=== PATIENT | male | born 1950 | race Hispanic/Latino ===

== ENCOUNTER 2019-09-14 16:24 | Inpatient (IN) | payer MEDICAID, OTHER ==
[~2019-09-14] VITALS: Ht 154.9 cm; Wt 73.3 kg
[2019-09-14 16:57] LABS: PARTIAL THROMBOPLASTIN TIME 29.9 SEC (26.3-35.5); PROTHROMBIN TIME 10.8 SEC (9.6-11.6)
[2019-09-14] MEDS ORDERED: ALBUTEROL INHALER 90MCG/INH IH ONE (17:03)
[2019-09-14 17:06] LABS: ALBUMIN 2.4 g/dL (3.5-5.0); CREATININE 1.3 mg/dL (0.5-1.5); POTASSIUM 3.8 mmol/L (3.5-5.1); TOTAL PROTEIN, SERUM 8.2 g/dL (6.0-8.3)
[2019-09-14 17:08] LABS: BASOPHILS % (AUTO) 0.2 % (0.0-5.0); CRP QUANTITATIVE 465.2 mg/L (0.00-9.0); HEMATOCRIT 40.3 % (42-54); LYMPHOCYTES % (AUTO) 3.4 % (21.0-51.0); MEAN CORPUSCULAR HGB CONC 34.7 g/dL (32.0-36.0); MEAN CORPUSCULAR VOLUME 92.2 fL (79-99); MONOCYTES % (AUTO) 3.6 % (3.0-13.0); NEUTROPHILS % (AUTO) 91.4 % (40.0-77.0); PLATELET COUNT (AUTO) 388 K/uL (130-400); RED BLOOD CELL COUNT(AUTO) 4.37 MIL/uL (4.50-6.20); RED CELL DISTRIBUTION WIDTH 12.6 % (11.0-15.5); WHITE BLOOD COUNT (AUTO) 15.1 K/uL (4.8-10.8)
[2019-09-14] MEDS ORDERED: INSULIN HUMULIN R 100 UNIT/ML 3ML ONE ×2 (17:35→18:34)
[2019-09-14 17:38] LABS: B-TYPE NATRIURETIC PEPTIDE 113 pg/mL (0-100)
[2019-09-14 17:52] LABS: FERRITIN 2091 ng/mL (30-400)
[2019-09-14] MEDS ORDERED: AZITHROMYCIN 500MG+NS 250ML 250 ML IV ONE (17:55)
[2019-09-14 17:59] LABS: ABG BASE EXCESS -9.3 mmol/L (-2.0-3.0); ABG OXYGEN SATURATION 84.1 % (95.0-99.0); ABG PCO2 22 mmHg (35-48)
[2019-09-14] MEDS ORDERED: DEXTROSE 5 %-0.45 % NACL 1,000 ML IV PRN (18:21)
[2019-09-14] MEDS ORDERED: SODIUM CHLORIDE 0.9% 1000ML 1,000 ML IV SCH (18:21)
[2019-09-14] MEDS ORDERED: ACETAMINOPHEN 325 MG TAB PO PRN ×2 (18:30)
[2019-09-14] MEDS ORDERED: ERGOCALCIFEROL (VITAMIN D2) 50,000 UNIT CAPSULE PO ONE (18:30)
[2019-09-14] MEDS ORDERED: HYDRALAZINE HCL 20 MG/ML VIAL IV PRN (18:30)
[2019-09-14] MEDS ORDERED: INSULIN REGULAR, HUMAN 3ML 100 UNIT in SODIUM CHLORIDE 0.9% 99 ML IV PRN ×2 (18:30)
[2019-09-14] MEDS ORDERED: POTASSIUM CHLORIDE 10MEQ/100ML 100 ML IV PRN (18:30)
[2019-09-14] MEDS ORDERED: ONDANSETRON HCL 4 MG/2 ML VIAL IV PRN (18:30)
[2019-09-14] MEDS ORDERED: SODIUM CHLORIDE 0.9% 100 ML IV ONE ×2 (18:35→21:51)
[2019-09-14] MEDS ORDERED: ALBUTEROL INHALER 90MCG/INH IH PRN (18:45)
[2019-09-14] MEDS ORDERED: DOXYCYCLINE HYCLATE 100 MG TABLET PO ONE (21:41)
[2019-09-14] MEDS ORDERED: METHYLPREDNISOLONE SOD SUCC 40MG/ML 1ML ONE (21:41)
[2019-09-14] MEDS ORDERED: CEFTRIAXONE SODIUM 1 GM ONE (21:41)
[2019-09-15] MEDS ORDERED: IOHEXOL-350 75 ML VIAL IV ONE (00:48)
[2019-09-15] MEDS ORDERED: ERGOCALCIFEROL (VITAMIN D2) 50,000 UNIT CAPSULE ONE (02:42)
[2019-09-15] MEDS ORDERED: DEXTROSE 5 %-0.45 % NACL 1,000 ML IV ONE (02:54)
[2019-09-15 04:05] LABS: BILIRUBIN,URINE Negative (NEGATIVE); COLOR,URINE Yellow (YELLOW); GLUCOSE, URINE (UA) >=1000 mg/dL (NEGATIVE); KETONES,URINE 40 mg/dL (NEGATIVE); LEUKOCYTE ESTERASE ,URINE Negative (NEGATIVE); NITRATE,URINE Negative (NEGATIVE); OCCULT BLOOD,URINE Negative (NEGATIVE); PH,URINE 5.5 (5.0-8.0); PROTEIN,URINE POS 1+ mg/dL (NEGATIVE)
[2019-09-15 04:23] LABS: APPEARANCE,URINE CLEAR (CLEAR); BACTERIA,URINE None Seen /HPF (None Seen); RBC,URINE None Seen /HPF (0-1); WBC,URINE None Seen /HPF (0-1)
[2019-09-15 04:35] LABS: ABG BASE EXCESS -5.4 mmol/L (-2.0-3.0); ABG HCO3 18.2 mmol/L (21.0-28.0); ABG OXYGEN SATURATION 95.2 % (95.0-99.0); ABG PCO2 31 mmHg (35-48)
[2019-09-15 06:27] LABS: BASOPHILS % (AUTO) 0.2 % (0.0-5.0); HEMATOCRIT 35.3 % (42-54); LYMPHOCYTES % (AUTO) 3.8 % (21.0-51.0); MEAN CORPUSCULAR HEMOGLOBIN 35.1 pg (27.0-33.0); MEAN CORPUSCULAR VOLUME 92.4 fL (79-99); MONOCYTES % (AUTO) 4.2 % (3.0-13.0); NEUTROPHILS % (AUTO) 90.1 % (40.0-77.0); PLATELET COUNT (AUTO) 332 K/uL (130-400); RED BLOOD CELL COUNT(AUTO) 3.82 MIL/uL (4.50-6.20); RED CELL DISTRIBUTION WIDTH 12.7 % (11.0-15.5); WHITE BLOOD COUNT (AUTO) 15.6 K/uL (4.8-10.8)
[2019-09-15 06:48] LABS: CREATININE 0.7 mg/dL (0.5-1.5); POTASSIUM 3.1 mmol/L (3.5-5.1)
[2019-09-15 07:37] LABS: CRP QUANTITATIVE 282.8 mg/L (0.00-9.0)
[2019-09-15] MEDS ORDERED: ASCORBIC ACID 500 MG TAB ONE (08:12)
[2019-09-15] MEDS ORDERED: ENOXAPARIN SODIUM 40 MG/0.4 ML SYRINGE SQ ONE (08:12)
[2019-09-15] MEDS ORDERED: ALBUTEROL INHALER 90MCG/INH IH ONE (08:12)
[2019-09-15] MEDS ORDERED: DOXYCYCLINE HYCLATE 100 MG TABLET PO ONE (08:12)
[2019-09-15] MEDS ORDERED: ZINC SULFATE 220 CAPSULE ONE (08:12)
[2019-09-15] MEDS ORDERED: ENOXAPARIN SODIUM 40 MG/0.4 ML SYRINGE SQ SCH (09:00)
[2019-09-15] MEDS ORDERED: CEFTRIAXONE SODIUM 1 GM ONE (10:34)
[2019-09-15] MEDS ORDERED: METHYLPREDNISOLONE SOD SUCC 125MG/2ML VIAL ONE (10:35)
[2019-09-15] MEDS ORDERED: POTASSIUM CHLORIDE 20MEQ/100ML 100 ML IV ONE (12:54)
[2019-09-15 14:35] LABS: CREATININE 0.8 mg/dL (0.5-1.5); POTASSIUM 3.6 mmol/L (3.5-5.1)
[2019-09-15] MEDS ORDERED: POTASSIUM CHLORIDE 10MEQ/100ML 100 ML IV ONE (14:55)
[2019-09-15] MEDS ORDERED: METHYLPREDNISOLONE SOD SUCC 40MG/ML 1ML ONE (17:11)
--- NOTE | 2019-09-15 17:27 | NUR ---
REACHED PATIENTS DAUGHTER TERRELL BY PHONE FOR [place] CONFIRMED NUMBERS ON FACE SHEET, ASKED TERRELL TO ENSURE MONIS[facility], DAUGHTER OF PATIENT WHO LEFT NUMBER TO ANSWER PHONE IF HOSPITAL CALLS, VERBALIZED UNDERSTANDING, WILL PASS ON TO [facility]. PATIENT LIVES WITH SPOUSE VALERIE, IS ACTIVE, INDEPENDENT, DRIVES, AND HAS NO DME. SPOUSE CURRENTLY [place], AND PHONEliane IS A [place] PHONSE,NO ABLE TO GET IN TOUCH WITH HER. DCP IS HOME, MONISHA OR TERRELL TO PROVIDE TRANSPORT,PT IS UNINSURED AND HAS BEEN A RESIDENT FOR 5 + YEARS, [facility] TO SCREEN CM TO FOLLOW Addendum: 09/15/19 at 1730 by CATARINO SANCHEZ RN CM Amended: Links added.
[2019-09-15 18:11] LABS: CREATININE 0.8 mg/dL (0.5-1.5); POTASSIUM 3.6 mmol/L (3.5-5.1)
[2019-09-16] MEDS ORDERED: MIDODRINE HCL 5 MG TABLET ONE (02:08)
[2019-09-16] MEDS ORDERED: ACETAMINOPHEN 325 MG TAB ONE (02:35)
[2019-09-16] MEDS ORDERED: DEXTROSE 5 %-0.45 % NACL 1,000 ML IV ONE ×2 (05:07→12:12)
[2019-09-16 06:03] LABS: BASOPHILS % (AUTO) 0.2 % (0.0-5.0); HEMATOCRIT 35.5 % (42-54); LYMPHOCYTES % (AUTO) 4.7 % (21.0-51.0); MEAN CORPUSCULAR HEMOGLOBIN 36.5 pg (27.0-33.0); MEAN CORPUSCULAR HGB CONC 39.2 g/dL (32.0-36.0); MEAN CORPUSCULAR VOLUME 93.2 fL (79-99); NEUTROPHILS % (AUTO) 89.7 % (40.0-77.0); PLATELET COUNT (AUTO) 390 K/uL (130-400); RED BLOOD CELL COUNT(AUTO) 3.81 MIL/uL (4.50-6.20); RED CELL DISTRIBUTION WIDTH 12.8 % (11.0-15.5); WHITE BLOOD COUNT (AUTO) 15.4 K/uL (4.8-10.8)
[2019-09-16 07:05] LABS: CREATININE 0.7 mg/dL (0.5-1.5); CRP QUANTITATIVE 169.3 mg/L (0.00-9.0); POTASSIUM 3.4 mmol/L (3.5-5.1)
[2019-09-16] MEDS ORDERED: ASCORBIC ACID 500 MG TAB ONE (07:59)
[2019-09-16] MEDS ORDERED: ZINC SULFATE 220 CAPSULE ONE (08:00)
[2019-09-16] MEDS ORDERED: FAMOTIDINE/PF 20 MG/2 ML VIAL IV ONE ×2 (08:00→20:15)
[2019-09-16] MEDS ORDERED: METHYLPREDNISOLONE SOD SUCC 40MG/ML 1ML ONE ×2 (09:11→17:09)
[2019-09-16] MEDS ORDERED: PHARMACY COMMUNICATION MISC SCH (09:45)
[2019-09-16] MEDS ORDERED: CEFTRIAXONE SODIUM 1 GM ONE (13:19)
[2019-09-16] MEDS ORDERED: DOXYCYCLINE HYCLATE 100 MG TABLET PO ONE (13:19)
[2019-09-16] MEDS ORDERED: INSULIN GLARGINE 100 UNITS/ML 10 ML VIAL SQ ONE (14:45)
[2019-09-16] MEDS ORDERED: INSULIN LISPRO 100 UNIT/ML 3ML SQ SCH (17:00)
[2019-09-16 17:46] LABS: CREATININE 0.8 mg/dL (0.5-1.5); POTASSIUM 3.4 mmol/L (3.5-5.1)
[2019-09-16 17:51] LABS: BILIRUBIN,TOTAL 0.5 mg/dL (0.2-1.0); TOTAL PROTEIN, SERUM 6.7 g/dL (6.0-8.3)
[2019-09-16] MEDS ORDERED: ENOXAPARIN SODIUM 40 MG/0.4 ML SYRINGE SQ ONE (20:14)
[2019-09-16] MEDS ORDERED: INSULIN HUMULIN R 100 UNIT/ML 3ML ONE (20:18)
[2019-09-16] MEDS ORDERED: ENOXAPARIN SODIUM 30 MG/0.3 ML SQ SCH (21:00)
[2019-09-17] MEDS ORDERED: CEFTRIAXONE SODIUM 1 GM ONE ×2 (01:19→13:59)
[2019-09-17] MEDS ORDERED: METHYLPREDNISOLONE SOD SUCC 125MG/2ML VIAL ONE (01:19)
[2019-09-17] MEDS ORDERED: DOXYCYCLINE HYCLATE 100 MG TABLET PO ONE ×3 (01:19→21:17)
[2019-09-17 04:29] LABS: BASOPHILS % (AUTO) 0.1 % (0.0-5.0); LYMPHOCYTES % (AUTO) 4.3 % (21.0-51.0); MEAN CORPUSCULAR HEMOGLOBIN 35.6 pg (27.0-33.0); MEAN CORPUSCULAR HGB CONC 38.1 g/dL (32.0-36.0); MEAN CORPUSCULAR VOLUME 93.5 fL (79-99); MONOCYTES % (AUTO) 2.8 % (3.0-13.0); NEUTROPHILS % (AUTO) 91.7 % (40.0-77.0); PLATELET COUNT (AUTO) 354 K/uL (130-400); RED BLOOD CELL COUNT(AUTO) 3.85 MIL/uL (4.50-6.20); RED CELL DISTRIBUTION WIDTH 12.7 % (11.0-15.5); WHITE BLOOD COUNT (AUTO) 14.8 K/uL (4.8-10.8)
[2019-09-17 04:41] LABS: HEMOGLOBIN A1C 10.6 % (4.0-6.0)
[2019-09-17 04:46] LABS: CREATININE 0.6 mg/dL (0.5-1.5); CRP QUANTITATIVE 82.9 mg/L (0.00-9.0); POTASSIUM 3.7 mmol/L (3.5-5.1)
[2019-09-17] MEDS ORDERED: ASCORBIC ACID 500 MG TAB ONE (09:12)
[2019-09-17] MEDS ORDERED: METHYLPREDNISOLONE SOD SUCC 40MG/ML 1ML ONE ×3 (09:12→21:17)
[2019-09-17] MEDS ORDERED: ENOXAPARIN SODIUM 30 MG/0.3 ML SQ ONE ×2 (09:13→21:17)
[2019-09-17] MEDS ORDERED: ZINC SULFATE 220 CAPSULE ONE (09:13)
[2019-09-17] MEDS ORDERED: FAMOTIDINE/PF 20 MG/2 ML VIAL IV ONE (09:16)
[2019-09-17] MEDS ORDERED: INSULIN HUMULIN R 100 UNIT/ML 3ML ONE (14:02)
[2019-09-17] MEDS ORDERED: INSULIN GLARGINE 100 UNITS/ML 10 ML VIAL SQ SCH (21:00)
[2019-09-17] MEDS ORDERED: ENOXAPARIN SODIUM 1 MG/KG SQ SCH (23:30)
[2019-09-18] MEDS ORDERED: METHYLPREDNISOLONE SOD SUCC 40MG/ML 1ML ONE (04:48)
[2019-09-18] MEDS ORDERED: CEFTRIAXONE SODIUM 1 GM ONE (04:48)
[2019-09-18] MEDS ORDERED: SODIUM CHLORIDE 0.9% 1000ML 1,000 ML IV ONE (04:55)
[2019-09-18] MEDS: CEFTRIAXONE SODIUM 1 GM IVP SCH ×2 (06:30→19:31)
[2019-09-18] MEDS: INSULIN HUMULIN R 100 UNIT/ML 3ML SQ SCH ×4 (07:30→21:00)
[2019-09-18] MEDS ORDERED: INSULIN LISPRO 100 UNIT/ML 3ML SQ SCH (08:00)
[2019-09-18] MEDS: FAMOTIDINE 20MG TAB 20 MG TAB PO SCH (09:00)
[2019-09-18] MEDS: ASCORBIC ACID 500 MG TAB PO SCH (09:00)
[2019-09-18] MEDS: DOXYCYCLINE HYCLATE 100 MG TABLET PO SCH ×2 (09:00→21:14)
[2019-09-18] MEDS: ZINC SULFATE 220 CAPSULE PO SCH (09:00)
[2019-09-18] MEDS ORDERED: ASCORBIC ACID 500 MG TAB ONE (09:12)
[2019-09-18] MEDS ORDERED: ZINC SULFATE 220 CAPSULE ONE (09:12)
[2019-09-18] MEDS ORDERED: FAMOTIDINE/PF 20 MG/2 ML VIAL IV ONE (09:13)
[2019-09-18] MEDS ORDERED: ENOXAPARIN SODIUM 30 MG/0.3 ML SQ ONE (09:13)
[2019-09-18] MEDS ORDERED: METHYLPREDNISOLONE SOD SUCC 125MG/2ML VIAL ONE (09:13)
[2019-09-18 11:35] VITALS: BP 158/72
[2019-09-18] MEDS: SODIUM CHLORIDE 0.9% 1000ML 1,000 ML IV SCH ×3 (11:58→22:53)
[2019-09-18] MEDS: METHYLPREDNISOLONE SOD SUCC 40MG/ML 1ML IVP SCH ×2 (11:58→21:14)
[2019-09-18 16:00] VITALS: BP 151/65
[2019-09-18] MEDS: INSULIN LISPRO 100 UNIT/ML 3ML SQ SCH (16:54)
[2019-09-18 20:00] VITALS: BP 139/62
--- NOTE | 2019-09-18 20:24 | NUR ---
PM ASSESSMENT ASSESSMENT COMPLETED A &OX3, NRB @15 L LUNGS DIMINISHED. BED ALARM FRUIT COORDINATOR MENDEZ IN REACH. DENIES NEEDS/CONCERNS ABLE TO MAKE NEEDS KNOWN.
[2019-09-18] MEDS ORDERED: INSULIN GLARGINE 100 UNITS/ML 10 ML VIAL SQ SCH ×2 (21:00)
[2019-09-18] MEDS: ENOXAPARIN SODIUM 80 MG/0.8 ML SQ SCH (21:04)
[2019-09-19] VITALS: BP 151/65
[2019-09-19] MEDS: SODIUM CHLORIDE 0.9% 1000ML 1,000 ML IV SCH ×2 (03:30→09:14)
[2019-09-19 04:00] VITALS: BP 125/67
[2019-09-19] MEDS: INSULIN HUMULIN R 100 UNIT/ML 3ML SQ SCH ×4 (06:51→21:01)
[2019-09-19] MEDS: CEFTRIAXONE SODIUM 1 GM IVP SCH ×2 (06:52→21:26)
[2019-09-19 08:00] VITALS: BP 136/68
[2019-09-19] MEDS: FAMOTIDINE 20MG TAB 20 MG TAB PO SCH (09:00)
[2019-09-19] MEDS: ZINC SULFATE 220 CAPSULE PO SCH (09:13)
[2019-09-19] MEDS: METHYLPREDNISOLONE SOD SUCC 40MG/ML 1ML IVP SCH ×3 (09:14→21:26)
[2019-09-19] MEDS: DOXYCYCLINE HYCLATE 100 MG TABLET PO SCH ×2 (09:14→21:26)
[2019-09-19] MEDS: ASCORBIC ACID 500 MG TAB PO SCH (09:14)
[2019-09-19] MEDS: ENOXAPARIN SODIUM 80 MG/0.8 ML SQ SCH ×2 (09:14→21:27)
[2019-09-19] MEDS: INSULIN LISPRO 100 UNIT/ML 3ML SQ SCH ×3 (09:16→17:08)
[2019-09-19 11:45] VITALS: BP 137/64
[2019-09-19 13:55] LABS: CRP QUANTITATIVE 58.3 mg/L (0.00-9.0)
[2019-09-19 16:00] VITALS: BP 150/68
--- NOTE | 2019-09-19 16:00 | NUR ---
PLASMA CONSENT PATIENT PROVIDED WITH INFORMATION REGARDING CONVALESCENT PLASMA. PATIENT WISHES TO READ THE TEACHING MATERIAL PROVIDED AND TALK TO HIS DAUGHTER ABOUT CONVALESCENT PLASMA. HE IS ALREADY REGISTERED. REGISTRATION FAXED TO LAB.
[2019-09-19] MEDS ORDERED: REMDESIVIR (INVESTIGATIONAL) 100 MG in SODIUM CHLORIDE 0.9% 250 ML IV SCH (17:30)
[2019-09-19 19:58] VITALS: BP 144/73
[2019-09-19] MEDS ORDERED: INSULIN GLARGINE 100 UNITS/ML 10 ML VIAL SQ SCH (21:00)
[2019-09-19] MEDS: PHARMACY COMMUNICATION** REMDESIVIR ORDER MISC SCH (22:20)
[2019-09-20] VITALS (7 sets, daily range): BP systolic 128–151; BP diastolic 58–70
[2019-09-20 04:56] LABS: HEMATOCRIT 33.4 % (42-54); MEAN CORPUSCULAR HEMOGLOBIN 37.5 pg (27.0-33.0); MEAN CORPUSCULAR HGB CONC 40.4 g/dL (32.0-36.0); MEAN CORPUSCULAR VOLUME 92.8 fL (79-99); PLATELET COUNT (AUTO) 254 K/uL (130-400); RED CELL DISTRIBUTION WIDTH 11.9 % (11.0-15.5); WHITE BLOOD COUNT (AUTO) 13.3 K/uL (4.8-10.8)
[2019-09-20 05:15] LABS: ALBUMIN 2.1 g/dL (3.5-5.0); CREATININE 0.7 mg/dL (0.5-1.5); CRP QUANTITATIVE 65.2 mg/L (0.00-9.0); POTASSIUM 3.1 mmol/L (3.5-5.1); TOTAL PROTEIN, SERUM 6.3 g/dL (6.0-8.3)
[2019-09-20 05:22] LABS: BAND NEUTROPHILS % (MANUAL) 7 % (0-2); EOSINOPHILS % (MANUAL) 1 % (1-6); LYMPHOCYTES % (MANUAL) 7 % (22-44); SEGMENTED NEUTROPHILS % 85 % (40-70)
[2019-09-20 05:23] LABS: MAN.DIFF COMMENT-IMPRESSION MANUAL DIFFERENTIAL; PLATELET MORPHOLOGY COMMENT ADEQUATE
[2019-09-20] MEDS: PHARMACY COMMUNICATION** REMDESIVIR ORDER MISC SCH ×3 (05:48→23:00)
[2019-09-20] MEDS: CEFTRIAXONE SODIUM 1 GM IVP SCH ×2 (05:48→18:07)
--- NOTE | 2019-09-20 06:19 | NUR ---
PM SHIFT NOTE PT A & 0X3 ON NRB @15 L ENCOURAGED TO PRONE DURING THE NIGHT BUT HAS DECLINED TO DO SO. NOTED K+ = 3.1 ATTEMPTED TO REPLACE HOWEVER 10 MEQ POTASSIUM NOT STOCKED IN ANY [facility] NOTIFIED AND WILL MAKE AVAILABLE. NO CHANGES TO BASELINE SHIFT ASSESSMENT/ACUTE EVENTS OVERNIGHT.
[2019-09-20] MEDS: INSULIN HUMULIN R 100 UNIT/ML 3ML SQ SCH ×4 (06:33→20:49)
[2019-09-20] MEDS ORDERED: SODIUM CHLORIDE 0.9% 1000ML 1,000 ML IV ONE (06:55)
[2019-09-20] MEDS: DOXYCYCLINE HYCLATE 100 MG TABLET PO SCH ×2 (08:11→20:50)
[2019-09-20] MEDS: ASCORBIC ACID 500 MG TAB PO SCH (08:11)
[2019-09-20] MEDS: METHYLPREDNISOLONE SOD SUCC 40MG/ML 1ML IVP SCH ×3 (08:11→20:50)
[2019-09-20] MEDS: ZINC SULFATE 220 CAPSULE PO SCH (08:11)
[2019-09-20] MEDS: FAMOTIDINE 20MG TAB 20 MG TAB PO SCH (08:12)
[2019-09-20] MEDS: ENOXAPARIN SODIUM 80 MG/0.8 ML SQ SCH ×2 (08:12→20:50)
[2019-09-20] MEDS: INSULIN LISPRO 100 UNIT/ML 3ML SQ SCH ×3 (08:28→17:09)
--- NOTE | 2019-09-20 14:11 | NUR ---
PHONE CALL Family updated.
--- NOTE | 2019-09-20 18:02 | NUR ---
SPOKE WITH PT. RE:CONVALESCENT PLASMA ORDERED BY MD FOR TRANSFUSION. PT. STATES STILL HASN'T DECIDED ON ACCEPTING TRANSFUSION AND WILL SPEAK WITH HIS DAUGHTER ABOUT IT. INFORMED PT. TO NOTIFY NURSING STAFF ON DECISION WHETHER IT BE TO ACCEPT OR DENY, VERBALIZED UNDERSTANDING.
[2019-09-20] MEDS ORDERED: POTASSIUM CHLORIDE 10% ELIXIR 20 MEQ/15 ML UDCUP PO PRN (18:15)
[2019-09-20] MEDS ORDERED: LIDOCAINE HCL-MPF 1% 2ML VIAL IV PRN (18:15)
[2019-09-20] MEDS ORDERED: INSULIN GLARGINE 100 UNITS/ML 10 ML VIAL SQ SCH (21:00)
[2019-09-21 04:14] VITALS: BP 132/67
[2019-09-21 05:19] LABS: BASOPHILS % (AUTO) 0.1 % (0.0-5.0); HEMATOCRIT 33.4 % (42-54); LYMPHOCYTES % (AUTO) 3.5 % (21.0-51.0); MEAN CORPUSCULAR HEMOGLOBIN 34.5 pg (27.0-33.0); MEAN CORPUSCULAR HGB CONC 37.4 g/dL (32.0-36.0); MEAN CORPUSCULAR VOLUME 92.3 fL (79-99); MONOCYTES % (AUTO) 2.4 % (3.0-13.0); NEUTROPHILS % (AUTO) 93.1 % (40.0-77.0); PLATELET COUNT (AUTO) 199 K/uL (130-400); RED BLOOD CELL COUNT(AUTO) 3.62 MIL/uL (4.50-6.20); WHITE BLOOD COUNT (AUTO) 13.8 K/uL (4.8-10.8)
[2019-09-21] MEDS: PHARMACY COMMUNICATION** REMDESIVIR ORDER MISC SCH ×3 (05:46→22:24)
[2019-09-21] MEDS: INSULIN HUMULIN R 100 UNIT/ML 3ML SQ SCH ×4 (05:56→20:26)
[2019-09-21 05:57] LABS: ALBUMIN 1.9 g/dL (3.5-5.0); CREATININE 0.6 mg/dL (0.5-1.5); CRP QUANTITATIVE 48.4 mg/L (0.00-9.0); POTASSIUM 3.3 mmol/L (3.5-5.1); TOTAL PROTEIN, SERUM 5.8 g/dL (6.0-8.3)
[2019-09-21] MEDS: CEFTRIAXONE SODIUM 1 GM IVP SCH (05:57)
[2019-09-21 08:00] VITALS: BP 128/71
[2019-09-21] MEDS: INSULIN LISPRO 100 UNIT/ML 3ML SQ SCH ×3 (09:17→16:31)
[2019-09-21] MEDS: DOXYCYCLINE HYCLATE 100 MG TABLET PO SCH ×2 (09:29→20:20)
[2019-09-21] MEDS: METHYLPREDNISOLONE SOD SUCC 40MG/ML 1ML IVP SCH ×3 (09:29→20:20)
[2019-09-21] MEDS: ASCORBIC ACID 500 MG TAB PO SCH (09:30)
[2019-09-21] MEDS: ZINC SULFATE 220 CAPSULE PO SCH (09:30)
[2019-09-21] MEDS: POTASSIUM CHLORIDE 20 MEQ ERTAB PO PRN ×3 (09:30→16:33)
[2019-09-21] MEDS: ENOXAPARIN SODIUM 80 MG/0.8 ML SQ SCH (09:31)
--- NOTE | 2019-09-21 09:46 | NUR ---
[facility] CALLED IN REGARDS TO THE PATIENT RECEIVING PLASMA; I WENT AND SPOKE TO HIM ABOUT IT AND HE STATED THAT HE IS NOT GOING TO TAKE THE PLASMA, I ASKED IF THERES ANY QUESTIONS OR CONCERNS ABOUT IT I COULD HELP ANSWER FOR HIM AND HE STATED HE DID NOT TRUST TAKING IT STATING "IT WAS TO SOON TO BE TAKING IT NOT BEING TESTED ENOUGH"; I HAVE CALLED [facility] BANK AND INFORMED THEM PT NOT ACCEPTING.
[2019-09-21] MEDS: FAMOTIDINE/PF 20 MG/2 ML VIAL IV SCH ×2 (12:20→20:20)
[2019-09-21 12:22] VITALS: BP 134/59
--- NOTE | 2019-09-21 12:45 | NUR ---
PHONE CALL Patient's daughter Aster Montoya was updated and given opportunity to ask questions.
[2019-09-21 16:40] VITALS: BP 144/68
--- NOTE | 2019-09-21 16:45 | NUR ---
RDSCREEN - LOS X 7 Pt positive for COVID-19. DKA. Pt tolerating 60gm CCD with no report of GI distress, PO intake @100%. Pt LBM 09/18/19. WBC 13.8, BG 120, LDH 336, Alb 1.9. Pronating encouraged per EMR. Vitamin C, Zinc in place. Severe PCM. Recommend 500mg Vitamin BID Recommend 60mL ProMod BID RD to continue to monitor. Please notify as additional nutrition concerns arise. Thank you.
--- NOTE | 2019-09-21 18:15 | NUR ---
shift summary; pt's potassium level was 3.3 this am, i gave her 3 20meq tab's of kcl per protocol; he laid prone several times today with assistance arranging his oxygen tube, he was able to sit on edge of bed for all meals and ate approx. 50% of each meal; dr Tinajero adjusted down the amount of lovenox pt was receiving due to his dropping platelet numbers; dr Lovell rounded and was informed of current blood sugar levels and how much pt is eating; dr huerta did a video assisted rounding of the patient and updated him on how the pt was doing today--aaox3, requiring 15 L of oxygen via non rebreather mask with 02 sats in the 90%, unable to tolerate any kind of exertion, requires assistance to role over in bed. voiding dark yellow urine via urinal, no bm in several days but pt refuses to take laxatives stating it is his normal and he has been eating very little;
[2019-09-21 19:30] VITALS: BP 125/59
--- NOTE | 2019-09-21 20:20 | NUR ---
MEDS SHIFT ASSESSMENT DONE, PLEASE REFER TO CHART. DUE MEDS ADMINISTERED, TOLERATED WELL. INSTRUCTED TO LIE PRONE MUCH POSSIBLE. KEPT COMFORTABLE. CALL LIGHT WITHIN REACH. WILL MONITOR PT. Addendum: 09/21/19 at 2145 by YUDI RAMON RN RN Amended: Links added.
[2019-09-21] MEDS: ENOXAPARIN SODIUM 30 MG/0.3 ML SQ SCH (20:21)
[2019-09-21] MEDS: INSULIN GLARGINE 100 UNITS/ML 10 ML VIAL SQ SCH (20:26)
--- NOTE | 2019-09-21 22:00 | NUR ---
ROUNDS PT RESTING WELL, FAIRLY ASLEEP. NO DISTRESS NOTED. KEPT COMFORTABLE IN BED. CALL LIGHT WITHIN REACH. WILL MONITOR PT.
[2019-09-22] VITALS: BP 123/53
--- NOTE | 2019-09-22 01:45 | NUR ---
CHANGE PT AWAKENED AND TELE BATTERY CHANGED. NO CONCERNS VERBALIZED. NO DISTRESS NOTED. ENCOURAGED TO GO BACK TO SLEEP. WILL CONTINUE TO MONITOR PT.
--- NOTE | 2019-09-22 03:00 | NUR ---
O2 RT ASKED BY CASUAL SHOE INSPECTOR IF PT IS READY TO BE WEANED OFF O2 BUT PT IS STILL SOB WITH EXERTION ON THE NON-REBREATHER AND O2 SATS=90-95%. PT IS NOT READY AND STATED WILL RE-EVALUATE BY AM SHIFT TODAY.
[2019-09-22 04:00] VITALS: BP 127/59
--- NOTE | 2019-09-22 06:00 | NUR ---
ROUNDS PT RESTING WELL. NO COMPLAINTS VERBALIZED. KEPT COMFORTABLE. FOR MORE CARE.
[2019-09-22] MEDS: PHARMACY COMMUNICATION** REMDESIVIR ORDER MISC SCH ×2 (06:01→15:00)
[2019-09-22 06:18] LABS: BASOPHILS % (AUTO) 0.1 % (0.0-5.0); EOSINOPHILS % (AUTO) 0.1 % (0.0-8.0); HEMATOCRIT 33.9 % (42-54); LYMPHOCYTES % (AUTO) 5.6 % (21.0-51.0); MEAN CORPUSCULAR HEMOGLOBIN 34.4 pg (27.0-33.0); MEAN CORPUSCULAR HGB CONC 37.2 g/dL (32.0-36.0); MEAN CORPUSCULAR VOLUME 92.6 fL (79-99); MONOCYTES % (AUTO) 3.6 % (3.0-13.0); NEUTROPHILS % (AUTO) 89.7 % (40.0-77.0); PLATELET COUNT (AUTO) 312 K/uL (130-400); RED BLOOD CELL COUNT(AUTO) 3.66 MIL/uL (4.50-6.20); RED CELL DISTRIBUTION WIDTH 12.1 % (11.0-15.5)
[2019-09-22] MEDS: INSULIN HUMULIN R 100 UNIT/ML 3ML SQ SCH ×4 (06:23→22:36)
[2019-09-22 06:33] LABS: ALBUMIN 1.9 g/dL (3.5-5.0); BILIRUBIN,TOTAL 1.1 mg/dL (0.2-1.0); CREATININE 0.6 mg/dL (0.5-1.5); CRP QUANTITATIVE 49.7 mg/L (0.00-9.0); POTASSIUM 4.1 mmol/L (3.5-5.1); TOTAL PROTEIN, SERUM 5.9 g/dL (6.0-8.3)
[2019-09-22] MEDS: INSULIN LISPRO 100 UNIT/ML 3ML SQ SCH ×3 (07:31→17:17)
[2019-09-22 08:18] VITALS: BP 123/61
[2019-09-22] MEDS: DOXYCYCLINE HYCLATE 100 MG TABLET PO SCH ×2 (09:12→21:09)
[2019-09-22] MEDS: FAMOTIDINE/PF 20 MG/2 ML VIAL IV SCH ×2 (09:12→21:09)
[2019-09-22] MEDS: ZINC SULFATE 220 CAPSULE PO SCH (09:12)
[2019-09-22] MEDS: METHYLPREDNISOLONE SOD SUCC 40MG/ML 1ML IVP SCH ×3 (09:12→21:09)
[2019-09-22] MEDS: ASCORBIC ACID 500 MG TAB PO SCH (09:12)
[2019-09-22] MEDS: ENOXAPARIN SODIUM 30 MG/0.3 ML SQ SCH ×2 (09:13→21:10)
--- NOTE | 2019-09-22 10:12 | NUR ---
PT'S O2 SAT 85% THIS MORNING ON NON REBREATHER FACE MASK; I HAVE HAD HIM LAY PRONE FOR THE LAST HOUR AND RECHECKED SAT NOW AND STILL 85%; I HAVE PAGED RESP. THERAPY TO HAVE THEM COME AND EVALUATE HIM AND ADJUST OXYGEN; PT IS IN NO DISTRESS, WILL CONT TO MONITOR.
--- NOTE | 2019-09-22 10:23 | NUR ---
RESPIRATORY THERAPY HERE TO SEE PATIENT; ADDED O2 6L VIA NC ALONG WITH THE CURRENT NRB MASK AT 15L---NOW SAT. 96%
[2019-09-22] MEDS: LACTULOSE 20 GM/30 ML UDCUP PO PRN ×2 (11:50→11:59)
--- NOTE | 2019-09-22 12:21 | NUR ---
PHONE CALL Patient's daughter, Aster Montoya updated and given opportunity to ask questions.
[2019-09-22 12:25] VITALS: BP 151/65
[2019-09-22] MEDS ORDERED: REMDESIVIR (EUA) 520 100 MG VIAL IV ONE (16:00)
[2019-09-22] MEDS ORDERED: REMDESIVIR (EUA) 520 200 MG in SODIUM CHLORIDE 0.9% 250 ML IV SCH (16:00)
[2019-09-22] MEDS ORDERED: SODIUM CHLORIDE 0.9% 500ML 500 ML IV ONE (16:27)
[2019-09-22 16:35] VITALS: BP 129/54
--- NOTE | 2019-09-22 17:54 | NUR ---
SHIFT ASSESSMENT: PT REQUIRED AN INCREASE IN OXYGEN, DUE TO PERSISTANT SAT'S AT 85%; HE IS NOW AT 15L NON REBREATHER FACE MASK AND 6L NASAL CANULA, HE SATS IN THE MID 'S WITH THE NEW TREATMENT; PT HAS LAID PRONE WITH ASSISTANCE SEVERAL TIMES TODAY AND HAS SAT ON THE EDGE OF THE BED TO EAT ALL HIS MEALS--HE EATS ABOUT 50% OF ALL MEALS; HE VOIDS BOTH CONTINENT AND INCONTINENT IN BRIEF AT TIMES; I HAVE GIVEN HIM LACTULOSE TO ASSIST WITH BOWEL MOVEMENT, PT STATES HE HAS NOT HAD ONE IN SEVERAL DAYS; PT WAS STARTED ON REMDESIVIR THIS AFTERNOON, HE NOW MEETS PHARMACY'S REQUIREMENT'S TO RECEIVED;
[2019-09-22 20:08] VITALS: BP 124/61
[2019-09-22] MEDS: INSULIN GLARGINE 100 UNITS/ML 10 ML VIAL SQ SCH (22:35)
[2019-09-23] VITALS (7 sets, daily range): BP systolic 112–146; BP diastolic 55–70
[2019-09-23 05:48] LABS: HEMATOCRIT 33.7 % (42-54); MEAN CORPUSCULAR HEMOGLOBIN 35.3 pg (27.0-33.0); MEAN CORPUSCULAR HGB CONC 37.4 g/dL (32.0-36.0); MEAN CORPUSCULAR VOLUME 94.4 fL (79-99); PLATELET COUNT (AUTO) 345 K/uL (130-400); RED BLOOD CELL COUNT(AUTO) 3.57 MIL/uL (4.50-6.20); RED CELL DISTRIBUTION WIDTH 12.2 % (11.0-15.5); WHITE BLOOD COUNT (AUTO) 11.6 K/uL (4.8-10.8)
[2019-09-23 06:05] LABS: BAND NEUTROPHILS % (MANUAL) 1 % (0-2); LYMPHOCYTES % (MANUAL) 3 % (22-44); MAN.DIFF COMMENT-IMPRESSION MANUAL DIFFERENTIAL; MONOCYTES % (MANUAL) 4 % (2-9); SEGMENTED NEUTROPHILS % 92 % (40-70)
[2019-09-23 06:16] LABS: ALBUMIN 1.9 g/dL (3.5-5.0); BILIRUBIN,TOTAL 1.1 mg/dL (0.2-1.0); CREATININE 0.7 mg/dL (0.5-1.5); CRP QUANTITATIVE 44.3 mg/L (0.00-9.0); POTASSIUM 3.8 mmol/L (3.5-5.1); TOTAL PROTEIN, SERUM 5.8 g/dL (6.0-8.3)
[2019-09-23] MEDS: INSULIN HUMULIN R 100 UNIT/ML 3ML SQ SCH ×4 (06:38→21:00)
[2019-09-23] MEDS: PHARMACY COMMUNICATION** REMDESIVIR ORDER MISC SCH ×3 (07:00→22:06)
[2019-09-23] MEDS: FAMOTIDINE/PF 20 MG/2 ML VIAL IV SCH ×2 (08:32→21:03)
[2019-09-23] MEDS: METHYLPREDNISOLONE SOD SUCC 40MG/ML 1ML IVP SCH ×3 (08:32→20:50)
[2019-09-23] MEDS: DOXYCYCLINE HYCLATE 100 MG TABLET PO SCH ×2 (08:33→20:50)
[2019-09-23] MEDS: ASCORBIC ACID 500 MG TAB PO SCH (08:33)
[2019-09-23] MEDS: ENOXAPARIN SODIUM 30 MG/0.3 ML SQ SCH ×2 (08:33→20:51)
[2019-09-23] MEDS: INSULIN LISPRO 100 UNIT/ML 3ML SQ SCH ×3 (08:34→16:59)
[2019-09-23] MEDS ORDERED: COMPOUND IV REFRIGERATED 1 EACH IVSOLN MISC PRN (11:45)
[2019-09-23] MEDS: ZINC SULFATE 220 CAPSULE PO SCH (11:55)
--- NOTE | 2019-09-23 12:02 | NUR ---
DR. RENEA GARCIA. UPDATED ON PT. STATUS AND QUESTIONS ANSWERED. ORDER RECEIVED.
[2019-09-23] MEDS ORDERED: SODIUM CHLORIDE 0.9% 50 ML IV ONE (15:14)
[2019-09-23] MEDS: REMDESIVIR (EUA) 520 100 MG in SODIUM CHLORIDE 0.9% 250 ML IV SCH (15:15)
--- NOTE | 2019-09-23 15:25 | NUR ---
PT. RESTING IN BED WITH HOB AT 30 DEGREES, RESP.'S EVEN AND UNLABORED. NRB AND NC AT 6L/MIN IN PLACE. O2 SAT. 97%. NC REMOVED AND KEPT PT. ON NRB. INSTRUCTED PT. TO CALL IF FEELS SOB OR FEELS LIKE HE NEEDS MORE OXYGEN, PT. VERBALIZED UNDERSTANDING. CALL LIGHT WITHIN REACH AND VERBALIZED UNDERSTANDING. CONTINUOUS PULSE OXIMETER AT BEDSIDE.
[2019-09-23] MEDS ORDERED: REMDESIVIR (EUA) 520 100 MG VIAL IV ONE (16:00)
[2019-09-23] MEDS: INSULIN GLARGINE 100 UNITS/ML 10 ML VIAL SQ SCH (21:44)
[2019-09-24 03:00] VITALS: BP 131/59
[2019-09-24 05:26] LABS: BASOPHILS % (AUTO) 0.2 % (0.0-5.0); HEMATOCRIT 32.8 % (42-54); MEAN CORPUSCULAR HEMOGLOBIN 37.8 pg (27.0-33.0); MEAN CORPUSCULAR HGB CONC 40.5 g/dL (32.0-36.0); MEAN CORPUSCULAR VOLUME 93.2 fL (79-99); MONOCYTES % (AUTO) 2.3 % (3.0-13.0); NEUTROPHILS % (AUTO) 93.7 % (40.0-77.0); PLATELET COUNT (AUTO) 360 K/uL (130-400); RED BLOOD CELL COUNT(AUTO) 3.52 MIL/uL (4.50-6.20); RED CELL DISTRIBUTION WIDTH 12.3 % (11.0-15.5); WHITE BLOOD COUNT (AUTO) 13.4 K/uL (4.8-10.8)
[2019-09-24] MEDS: INSULIN HUMULIN R 100 UNIT/ML 3ML SQ SCH ×3 (05:54→16:30)
[2019-09-24 05:57] LABS: BILIRUBIN,TOTAL 1.2 mg/dL (0.2-1.0); CREATININE 0.6 mg/dL (0.5-1.5); CRP QUANTITATIVE 35.1 mg/L (0.00-9.0); POTASSIUM 4.1 mmol/L (3.5-5.1); TOTAL PROTEIN, SERUM 6.2 g/dL (6.0-8.3)
[2019-09-24] MEDS: PHARMACY COMMUNICATION** REMDESIVIR ORDER MISC SCH ×3 (06:07→22:37)
[2019-09-24 08:00] VITALS: BP_SYST 102; BP_SYST 115; BP_DIAS 61; BP_DIAS 62
[2019-09-24] MEDS: METHYLPREDNISOLONE SOD SUCC 40MG/ML 1ML IVP SCH ×3 (09:07→20:33)
[2019-09-24] MEDS: FAMOTIDINE/PF 20 MG/2 ML VIAL IV SCH ×2 (09:07→20:33)
[2019-09-24] MEDS: ENOXAPARIN SODIUM 30 MG/0.3 ML SQ SCH ×2 (09:07→20:34)
[2019-09-24] MEDS: DOXYCYCLINE HYCLATE 100 MG TABLET PO SCH (09:07)
[2019-09-24] MEDS: ASCORBIC ACID 500 MG TAB PO SCH (09:07)
[2019-09-24] MEDS: INSULIN LISPRO 100 UNIT/ML 3ML SQ SCH ×4 (09:22→21:05)
[2019-09-24 12:00] VITALS: BP_SYST 119; BP_SYST 148; BP_DIAS 68; BP_DIAS 69
[2019-09-24] MEDS: ZINC SULFATE 220 CAPSULE PO SCH (12:54)
--- NOTE | 2019-09-24 15:04 | NUR ---
Nutrition Follow Up: Consultation received for severe PCM due to alb 2.0 and does not meet criteria. Pt currently on 60gm CCD. Per nurse, pt with good tolerance, Fair intake, and will followup on compliance with protein supplementation. Pt getting promod 60ml BID. elevated glucose level. [facility] 09/20 Recommend: continue 60gm CCD, will add no concentrated sweets to diet order. F/U with nurse on supplemental protein intake compliance. Stool softener to promote BM Outpatient nutrition consultation for uncontrolled T2DM A1C 10.6. Lab draw Vit D: if low, provide 1000 IU of Vit D. Addendum: 09/24/19 at [address] Amended: Links added.
[2019-09-24 16:00] VITALS: BP_SYST 115; BP_SYST 134; BP_DIAS 61; BP_DIAS 64
[2019-09-24] MEDS ORDERED: REMDESIVIR (EUA) 520 100 MG VIAL IV ONE (16:00)
[2019-09-24] MEDS: REMDESIVIR (EUA) 520 100 MG in SODIUM CHLORIDE 0.9% 250 ML IV SCH (17:28)
[2019-09-24 19:00] VITALS: BP 117/56
[2019-09-24] MEDS: INSULIN GLARGINE 100 UNITS/ML 10 ML VIAL SQ SCH (21:06)
[2019-09-24 23:00] VITALS: BP 113/50
[2019-09-25 03:00] VITALS: BP 154/75
[2019-09-25] MEDS: LACTULOSE 20 GM/30 ML UDCUP PO PRN (03:08)
[2019-09-25 05:52] LABS: BASOPHILS % (AUTO) 0.2 % (0.0-5.0); HEMATOCRIT 38.5 % (42-54); LYMPHOCYTES % (AUTO) 5.8 % (21.0-51.0); MEAN CORPUSCULAR HEMOGLOBIN 34.7 pg (27.0-33.0); MEAN CORPUSCULAR HGB CONC 37.4 g/dL (32.0-36.0); MEAN CORPUSCULAR VOLUME 92.8 fL (79-99); MONOCYTES % (AUTO) 2.8 % (3.0-13.0); NEUTROPHILS % (AUTO) 90.4 % (40.0-77.0); PLATELET COUNT (AUTO) 407 K/uL (130-400); RED BLOOD CELL COUNT(AUTO) 4.15 MIL/uL (4.50-6.20); RED CELL DISTRIBUTION WIDTH 12.4 % (11.0-15.5); WHITE BLOOD COUNT (AUTO) 12.4 K/uL (4.8-10.8)
[2019-09-25] MEDS: PHARMACY COMMUNICATION** REMDESIVIR ORDER MISC SCH ×3 (06:06→23:00)
[2019-09-25 06:20] LABS: B-TYPE NATRIURETIC PEPTIDE 7 pg/mL (0-100)
[2019-09-25 06:22] LABS: CREATININE 0.7 mg/dL (0.5-1.5); CRP QUANTITATIVE 29.2 mg/L (0.00-9.0)
[2019-09-25] MEDS: INSULIN LISPRO 100 UNIT/ML 3ML SQ SCH ×7 (06:33→21:20)
[2019-09-25 07:30] VITALS: BP 120/61
[2019-09-25] MEDS: FAMOTIDINE/PF 20 MG/2 ML VIAL IV SCH ×2 (08:20→20:20)
[2019-09-25] MEDS: ASCORBIC ACID 500 MG TAB PO SCH (08:20)
[2019-09-25] MEDS: METHYLPREDNISOLONE SOD SUCC 40MG/ML 1ML IVP SCH ×3 (08:20→20:20)
[2019-09-25] MEDS: ENOXAPARIN SODIUM 30 MG/0.3 ML SQ SCH ×2 (08:21→20:21)
[2019-09-25 11:30] VITALS: BP 118/61
[2019-09-25] MEDS: ZINC SULFATE 220 CAPSULE PO SCH (12:41)
[2019-09-25 15:30] VITALS: BP 128/62
[2019-09-25] MEDS ORDERED: REMDESIVIR (EUA) 520 100 MG VIAL IV ONE (16:00)
[2019-09-25] MEDS: REMDESIVIR (EUA) 520 100 MG in SODIUM CHLORIDE 0.9% 250 ML IV SCH (17:28)
--- NOTE | 2019-09-25 17:58 | NUR ---
i spoke to pt's daughter on the phone and updated her as to how pt's day has been going.
[2019-09-25 19:00] VITALS: BP 131/61
[2019-09-25] MEDS: INSULIN GLARGINE 100 UNITS/ML 10 ML VIAL SQ SCH (20:24)
[2019-09-25 23:00] VITALS: BP 124/58
[2019-09-26 03:00] VITALS: BP 126/60
[2019-09-26 06:29] LABS: BASOPHILS % (AUTO) 0.1 % (0.0-5.0); HEMATOCRIT 31.2 % (42-54); LYMPHOCYTES % (AUTO) 5.9 % (21.0-51.0); MEAN CORPUSCULAR HEMOGLOBIN 37.8 pg (27.0-33.0); MEAN CORPUSCULAR HGB CONC 40.7 g/dL (32.0-36.0); MEAN CORPUSCULAR VOLUME 92.9 fL (79-99); NEUTROPHILS % (AUTO) 89.2 % (40.0-77.0); PLATELET COUNT (AUTO) 338 K/uL (130-400); RED BLOOD CELL COUNT(AUTO) 3.36 MIL/uL (4.50-6.20); RED CELL DISTRIBUTION WIDTH 12.4 % (11.0-15.5); WHITE BLOOD COUNT (AUTO) 10.7 K/uL (4.8-10.8)
[2019-09-26] MEDS: INSULIN LISPRO 100 UNIT/ML 3ML SQ SCH ×6 (06:33→20:48)
[2019-09-26 07:01] LABS: CREATININE 0.7 mg/dL (0.5-1.5); CRP QUANTITATIVE 18.5 mg/L (0.00-9.0)
[2019-09-26 07:30] VITALS: BP 103/52
[2019-09-26 08:10] LABS: B-TYPE NATRIURETIC PEPTIDE 20 pg/mL (0-100)
[2019-09-26] MEDS: FAMOTIDINE/PF 20 MG/2 ML VIAL IV SCH ×2 (08:28→20:08)
[2019-09-26] MEDS: METHYLPREDNISOLONE SOD SUCC 40MG/ML 1ML IVP SCH ×2 (08:28→14:17)
[2019-09-26] MEDS: ENOXAPARIN SODIUM 30 MG/0.3 ML SQ SCH ×2 (08:29→20:08)
[2019-09-26] MEDS: ASCORBIC ACID 500 MG TAB PO SCH (08:29)
[2019-09-26 11:30] VITALS: BP 123/62
[2019-09-26] MEDS: ZINC SULFATE 220 CAPSULE PO SCH (12:10)
[2019-09-26] MEDS: GUAIFENESIN-DM 200/20 MG 10 ML PO PRN (14:17)
[2019-09-26 15:30] VITALS: BP 138/60
[2019-09-26] MEDS ORDERED: REMDESIVIR (EUA) 520 100 MG VIAL IV ONE (16:00)
[2019-09-26] MEDS: REMDESIVIR (EUA) 520 100 MG in SODIUM CHLORIDE 0.9% 250 ML IV SCH (16:13)
--- NOTE | 2019-09-26 17:55 | NUR ---
shift assessment; pt cont. with partial non rebreather at 70% o2 with sat's high 80'2 during activity and 96 % at rest; he is still not able to ambulate or get out of bed due to extreme sob while attempting; he does sit on edge of bed during meals and is eating 100% of meals, voiding per urinal dark yellow urine; in good spirits, frequently watching tv; iv access changed due to it being old; daughter called to check on him.
[2019-09-26 20:00] VITALS: BP 131/58
[2019-09-26] MEDS: INSULIN GLARGINE 100 UNITS/ML 10 ML VIAL SQ SCH (20:49)
[2019-09-27] VITALS (7 sets, daily range): BP systolic 127–137; BP diastolic 57–66
[2019-09-27 05:23] LABS: BASOPHILS % (AUTO) 0.1 % (0.0-5.0); EOSINOPHILS % (AUTO) 0.3 % (0.0-8.0); LYMPHOCYTES % (AUTO) 10.7 % (21.0-51.0); MEAN CORPUSCULAR HEMOGLOBIN 33.7 pg (27.0-33.0); MEAN CORPUSCULAR HGB CONC 35.8 g/dL (32.0-36.0); MONOCYTES % (AUTO) 5.6 % (3.0-13.0); NEUTROPHILS % (AUTO) 82.4 % (40.0-77.0); PLATELET COUNT (AUTO) 358 K/uL (130-400); RED BLOOD CELL COUNT(AUTO) 3.83 MIL/uL (4.50-6.20); RED CELL DISTRIBUTION WIDTH 12.6 % (11.0-15.5)
[2019-09-27 06:07] LABS: CREATININE 0.7 mg/dL (0.5-1.5); CRP QUANTITATIVE 12.3 mg/L (0.00-9.0); POTASSIUM 3.7 mmol/L (3.5-5.1)
[2019-09-27] MEDS: INSULIN LISPRO 100 UNIT/ML 3ML SQ SCH ×6 (06:38→21:00)
[2019-09-27] MEDS: FAMOTIDINE/PF 20 MG/2 ML VIAL IV SCH ×2 (08:34→22:00)
[2019-09-27] MEDS: DEXAMETHASONE 4 MG TAB PO SCH (08:34)
[2019-09-27] MEDS: ASCORBIC ACID 500 MG TAB PO SCH (08:34)
[2019-09-27] MEDS: ENOXAPARIN SODIUM 30 MG/0.3 ML SQ SCH ×2 (08:34→22:00)
[2019-09-27] MEDS: GUAIFENESIN-DM 200/20 MG 10 ML PO PRN (08:37)
[2019-09-27] MEDS: ZINC SULFATE 220 CAPSULE PO SCH (11:53)
--- NOTE | 2019-09-27 18:22 | NUR ---
shift summary; pt has needed to cont. with partial non rebreather; i attempted to lower the amount of oxygen he was receiving and after an hour his sat's went from 99% to 92% and he was c/o being uncomfortable with it and sob; i have encouraged him to prone lie more often; pt still is not able to walk but cont. to sit on edge of bed for meals and he is eating 100% of his meals. voiding qs per urinal, no bm today;
[2019-09-27] MEDS: INSULIN GLARGINE 100 UNITS/ML 10 ML VIAL SQ SCH (22:02)
[2019-09-28 03:28] VITALS: BP 115/57
[2019-09-28 05:54] LABS: BASOPHILS % (AUTO) 0.1 % (0.0-5.0); EOSINOPHILS % (AUTO) 1.3 % (0.0-8.0); HEMATOCRIT 37.4 % (42-54); LYMPHOCYTES % (AUTO) 10.3 % (21.0-51.0); MEAN CORPUSCULAR HEMOGLOBIN 33.3 pg (27.0-33.0); MEAN CORPUSCULAR HGB CONC 35.6 g/dL (32.0-36.0); MEAN CORPUSCULAR VOLUME 93.7 fL (79-99); MONOCYTES % (AUTO) 5.1 % (3.0-13.0); NEUTROPHILS % (AUTO) 81.8 % (40.0-77.0); PLATELET COUNT (AUTO) 328 K/uL (130-400); RED BLOOD CELL COUNT(AUTO) 3.99 MIL/uL (4.50-6.20); RED CELL DISTRIBUTION WIDTH 12.8 % (11.0-15.5); WHITE BLOOD COUNT (AUTO) 9.9 K/uL (4.8-10.8)
[2019-09-28 06:25] LABS: CARBON DIOXIDE 32 mmol/L (21-32); CHLORIDE 103 mmol/L (101-111); CREATININE 0.7 mg/dL (0.5-1.5); GLOMERULAR FILTR. RATE CALC 119 mL/min (>60); GLUCOSE,RANDOM 109 mg/dL (70-105); LACTATE DEHYDROGENASE 209 U/L (81-234); POTASSIUM 3.8 mmol/L (3.5-5.1); SODIUM SERUM 139 mmol/L (136-145); UREA NITROGEN, BLOOD 24 mg/dL (7-18)
[2019-09-28] MEDS: INSULIN LISPRO 100 UNIT/ML 3ML SQ SCH ×7 (07:30→22:49)
--- NOTE | 2019-09-28 07:45 | NUR ---
PT. ANXIOUS. SITTING UP IN BED. O2 SAT-82% PER CONT. PULSE OX. NRB MASK IN PLACE. ENCOURAGED AND ASSISTED TO LEFT SIDE-LYING POSITION. PT. INCREASED O2 SAT. TO 92%. CALL LIGHT WITHIN REACH, VERBALIZED ABILITY TO USE.
[2019-09-28 08:00] VITALS: BP 113/52
[2019-09-28] MEDS: ASCORBIC ACID 500 MG TAB PO SCH (08:43)
[2019-09-28] MEDS: FAMOTIDINE/PF 20 MG/2 ML VIAL IV SCH ×2 (08:44→22:02)
[2019-09-28] MEDS: DEXAMETHASONE 4 MG TAB PO SCH (08:44)
[2019-09-28] MEDS: ENOXAPARIN SODIUM 30 MG/0.3 ML SQ SCH ×2 (08:45→22:03)
[2019-09-28 11:30] VITALS: BP 120/53
[2019-09-28] MEDS: ZINC SULFATE 220 CAPSULE PO SCH (12:12)
--- NOTE | 2019-09-28 15:21 | NUR ---
RESTING IN BED IN LEFT SIDE-LYING POSITION WITH HOB AT 15 DEGREES, RESP.'S EVEN AND UNLABORED. PARTIAL NRB REMAINS IN PLACE. O2 SAT. PER CONT. PULSE OXIMETER 100%. CALL LIGHT WITHIN REACH.
[2019-09-28 15:30] VITALS: BP 124/61
--- NOTE | 2019-09-28 16:30 | NUR ---
RESTING IN BED. NRB IN PLACE. O2 SAT. 100% PER CONT. PULSE OX. DENIES ANY C/O AT THIS TIME. CALL LIGHT WITHIN REACH.
[2019-09-28 19:36] VITALS: BP 121/65
[2019-09-28] MEDS: INSULIN GLARGINE 100 UNITS/ML 10 ML VIAL SQ SCH (22:50)
[2019-09-28 23:52] VITALS: BP 126/69
[2019-09-29 03:26] VITALS: BP 116/59
[2019-09-29] MEDS: INSULIN LISPRO 100 UNIT/ML 3ML SQ SCH ×8 (06:14→21:00)
[2019-09-29] MEDS: APIXABAN 2.5 MG TABLET PO SCH ×2 (07:36→22:31)
[2019-09-29] MEDS: ASCORBIC ACID 500 MG TAB PO SCH (07:36)
[2019-09-29] MEDS: FAMOTIDINE/PF 20 MG/2 ML VIAL IV SCH ×2 (07:36→22:31)
[2019-09-29] MEDS: DEXAMETHASONE 4 MG TAB PO SCH (07:36)
[2019-09-29 07:46] LABS: BASOPHILS % (AUTO) 0.2 % (0.0-5.0); EOSINOPHILS % (AUTO) 1.1 % (0.0-8.0); HEMATOCRIT 40.3 % (42-54); LYMPHOCYTES % (AUTO) 7.4 % (21.0-51.0); MEAN CORPUSCULAR HEMOGLOBIN 32.9 pg (27.0-33.0); MEAN CORPUSCULAR HGB CONC 35.2 g/dL (32.0-36.0); MEAN CORPUSCULAR VOLUME 93.5 fL (79-99); MONOCYTES % (AUTO) 5.5 % (3.0-13.0); NEUTROPHILS % (AUTO) 84.4 % (40.0-77.0); PLATELET COUNT (AUTO) 303 K/uL (130-400); RED BLOOD CELL COUNT(AUTO) 4.31 MIL/uL (4.50-6.20); RED CELL DISTRIBUTION WIDTH 12.9 % (11.0-15.5); WHITE BLOOD COUNT (AUTO) 11.6 K/uL (4.8-10.8)
[2019-09-29 08:00] VITALS: BP 101/55
--- NOTE | 2019-09-29 08:00 | NUR ---
ASSESSMENT PT IS AAOX3 DENIES CP DENIES SOB DENIES NV WHILE AT REST. SITTING UPRIGHT IN BED, HOB UP AT 35 DEGREES. CURRENTLY ON NONREBREATHER MASK. BREATHING PATTERN IS EVEN AND UNLABORED. AM MEDS GIVEN AND TOLERATED. CALL LIGHT WITHIN REACH.
[2019-09-29 08:05] LABS: CARBON DIOXIDE 33 mmol/L (21-32); CHLORIDE 99 mmol/L (101-111); CREATININE 0.6 mg/dL (0.5-1.5); GLOMERULAR FILTR. RATE CALC 142 mL/min (>60); GLUCOSE,RANDOM 130 mg/dL (70-105); LACTATE DEHYDROGENASE 200 U/L (81-234); POTASSIUM 4.1 mmol/L (3.5-5.1); SODIUM SERUM 135 mmol/L (136-145); UREA NITROGEN, BLOOD 21 mg/dL (7-18)
[2019-09-29 09:21] LABS: B-TYPE NATRIURETIC PEPTIDE 21 pg/mL (0-100)
[2019-09-29 11:30] VITALS: BP 112/57
[2019-09-29] MEDS: ZINC SULFATE 220 CAPSULE PO SCH (11:51)
--- NOTE | 2019-09-29 12:45 | NUR ---
STATUS SITTING UPRIGHT IN BED, HOB UP AT 35 DEGREES, DENIES CP DENIES SOB WHILE AT REST. REMAINS ON PARTIAL NONRBMASK.
[2019-09-29 15:30] VITALS: BP 118/61
[2019-09-29 16:54] VITALS: BP 124/66
[2019-09-29] MEDS: INSULIN GLARGINE 100 UNITS/ML 10 ML VIAL SQ SCH (21:00)
[2019-09-29 21:36] VITALS: BP 120/66
[2019-09-30] VITALS (7 sets, daily range): BP systolic 121–128; BP diastolic 55–88
[2019-09-30 05:17] LABS: BASOPHILS % (AUTO) 0.2 % (0.0-5.0); EOSINOPHILS % (AUTO) 2.1 % (0.0-8.0); HEMATOCRIT 38.5 % (42-54); LYMPHOCYTES % (AUTO) 8.8 % (21.0-51.0); MEAN CORPUSCULAR HEMOGLOBIN 32.8 pg (27.0-33.0); MEAN CORPUSCULAR HGB CONC 35.6 g/dL (32.0-36.0); MEAN CORPUSCULAR VOLUME 92.1 fL (79-99); MONOCYTES % (AUTO) 5.8 % (3.0-13.0); NEUTROPHILS % (AUTO) 81.7 % (40.0-77.0); PLATELET COUNT (AUTO) 268 K/uL (130-400); RED BLOOD CELL COUNT(AUTO) 4.18 MIL/uL (4.50-6.20)
[2019-09-30 05:58] LABS: CREATININE 0.7 mg/dL (0.5-1.5); CRP QUANTITATIVE 32.5 mg/L (0.00-9.0); POTASSIUM 4.1 mmol/L (3.5-5.1)
[2019-09-30] MEDS: INSULIN LISPRO 100 UNIT/ML 3ML SQ SCH ×7 (06:58→22:26)
[2019-09-30] MEDS: FAMOTIDINE/PF 20 MG/2 ML VIAL IV SCH ×2 (07:49→22:16)
[2019-09-30] MEDS: DEXAMETHASONE 4 MG TAB PO SCH (07:50)
[2019-09-30] MEDS: APIXABAN 2.5 MG TABLET PO SCH ×2 (07:50→22:16)
[2019-09-30] MEDS: ASCORBIC ACID 500 MG TAB PO SCH (07:51)
--- NOTE | 2019-09-30 08:00 | NUR ---
ASSESSMENT PT IS AAOX3 DENIES CP DENIES SOB WHILE AT REST, BREATHING PATTERN IS EVEN AND UNLABORED WHILE AT REST. O2 VIA PNRB MASK, SATURATING MID 90S. SITTING UPRIGHT IN BED, AM MEDS GIVEN, CALL LIGHT WITHIN REACH.
[2019-09-30] MEDS: ZINC SULFATE 220 CAPSULE PO SCH (12:21)
--- NOTE | 2019-09-30 14:45 | NUR ---
DR STEEN ROUNDED UPDATES GIVEN
[2019-09-30] MEDS ORDERED: INSULIN LISPRO 100 UNIT/ML 3ML SQ SCH (17:00)
--- NOTE | 2019-09-30 17:15 | NUR ---
STATUS RESTING IN BED, REMAINS ON NRB MASK. O2 SATURATIONS LOW-MID 90S. DENIES CP DENIES SOB WHILE AT REST. CALL LIGHT WITHIN REACH.
[2019-09-30] MEDS: LACTULOSE 20 GM/30 ML UDCUP PO PRN (18:33)
[2019-09-30] MEDS: INSULIN GLARGINE 100 UNITS/ML 10 ML VIAL SQ SCH (22:27)
[2019-10-01 03:00] VITALS: BP 116/63
[2019-10-01 05:32] LABS: BASOPHILS % (AUTO) 0.1 % (0.0-5.0); EOSINOPHILS % (AUTO) 1.2 % (0.0-8.0); HEMATOCRIT 39.1 % (42-54); LYMPHOCYTES % (AUTO) 6.8 % (21.0-51.0); MEAN CORPUSCULAR HEMOGLOBIN 32.1 pg (27.0-33.0); MEAN CORPUSCULAR HGB CONC 34.8 g/dL (32.0-36.0); MEAN CORPUSCULAR VOLUME 92.2 fL (79-99); MONOCYTES % (AUTO) 5.9 % (3.0-13.0); NEUTROPHILS % (AUTO) 84.8 % (40.0-77.0); PLATELET COUNT (AUTO) 255 K/uL (130-400); RED BLOOD CELL COUNT(AUTO) 4.24 MIL/uL (4.50-6.20); RED CELL DISTRIBUTION WIDTH 13.2 % (11.0-15.5); WHITE BLOOD COUNT (AUTO) 14.5 K/uL (4.8-10.8)
[2019-10-01] MEDS: INSULIN LISPRO 100 UNIT/ML 3ML SQ SCH ×7 (05:33→20:18)
[2019-10-01 05:54] LABS: ALBUMIN 2.1 g/dL (3.5-5.0); BILIRUBIN,TOTAL 1.5 mg/dL (0.2-1.0); CREATININE 0.7 mg/dL (0.5-1.5); CRP QUANTITATIVE 45.2 mg/L (0.00-9.0); TOTAL PROTEIN, SERUM 6.4 g/dL (6.0-8.3)
[2019-10-01 08:00] VITALS: BP 138/68
[2019-10-01] MEDS: ASCORBIC ACID 500 MG TAB PO SCH (08:12)
[2019-10-01] MEDS: APIXABAN 2.5 MG TABLET PO SCH ×2 (08:12→20:13)
[2019-10-01] MEDS: DEXAMETHASONE 4 MG TAB PO SCH (08:13)
[2019-10-01] MEDS: FAMOTIDINE/PF 20 MG/2 ML VIAL IV SCH ×2 (08:14→20:13)
[2019-10-01 11:30] VITALS: BP 135/70
[2019-10-01] MEDS: ZINC SULFATE 220 CAPSULE PO SCH (12:34)
[2019-10-01 15:30] VITALS: BP 124/72
[2019-10-01 19:00] VITALS: BP 124/64
--- NOTE | 2019-10-01 20:00 | NUR ---
PT CONTINUES ON NON REBREATHER. ABLE TO CONVERSE WELL. MINIMAL SOB. STATES COUGH AT TIMES. NO PHLEGM. PT STATES NO BM FOR FOUR DAYS NOW. WEAKNESS, UNABLE TO AMBULATE TO RR. HAS BEDSIDE COMMODE AVAILABLE.
[2019-10-01] MEDS: INSULIN GLARGINE 100 UNITS/ML 10 ML VIAL SQ SCH (20:18)
[2019-10-01 23:00] VITALS: BP 141/67
[2019-10-02 03:00] VITALS: BP 139/64
[2019-10-02] MEDS: INSULIN LISPRO 100 UNIT/ML 3ML SQ SCH ×7 (05:14→22:13)
[2019-10-02] MEDS: LACTULOSE 20 GM/30 ML UDCUP PO PRN (05:33)
[2019-10-02 08:00] VITALS: BP 133/63
[2019-10-02] MEDS: DEXAMETHASONE 4 MG TAB PO SCH (09:20)
[2019-10-02] MEDS: ASCORBIC ACID 500 MG TAB PO SCH (09:20)
[2019-10-02] MEDS: APIXABAN 2.5 MG TABLET PO SCH ×2 (09:20→20:59)
[2019-10-02] MEDS: FAMOTIDINE/PF 20 MG/2 ML VIAL IV SCH ×2 (09:20→20:59)
[2019-10-02 11:30] VITALS: BP 132/60
[2019-10-02] MEDS: ZINC SULFATE 220 CAPSULE PO SCH (12:10)
[2019-10-02 15:30] VITALS: BP 135/65
[2019-10-02 19:00] VITALS: BP 131/67
[2019-10-02] MEDS: INSULIN GLARGINE 100 UNITS/ML 10 ML VIAL SQ SCH (22:14)
[2019-10-02 23:00] VITALS: BP 140/69
[2019-10-03 03:00] VITALS: BP 134/70
[2019-10-03 04:22] LABS: BASOPHILS % (AUTO) 0.3 % (0.0-5.0); EOSINOPHILS % (AUTO) 1.6 % (0.0-8.0); HEMATOCRIT 47.2 % (42-54); LYMPHOCYTES % (AUTO) 7.8 % (21.0-51.0); MEAN CORPUSCULAR HEMOGLOBIN 30.8 pg (27.0-33.0); MEAN CORPUSCULAR HGB CONC 33.3 g/dL (32.0-36.0); MEAN CORPUSCULAR VOLUME 92.7 fL (79-99); MONOCYTES % (AUTO) 5.8 % (3.0-13.0); NEUTROPHILS % (AUTO) 83.5 % (40.0-77.0); PLATELET COUNT (AUTO) 168 K/uL (130-400); RED BLOOD CELL COUNT(AUTO) 5.09 MIL/uL (4.50-6.20); RED CELL DISTRIBUTION WIDTH 13.9 % (11.0-15.5); WHITE BLOOD COUNT (AUTO) 10.1 K/uL (4.8-10.8)
[2019-10-03 04:37] LABS: CREATININE 0.7 mg/dL (0.5-1.5); CRP QUANTITATIVE 44.3 mg/L (0.00-9.0); POTASSIUM 4.1 mmol/L (3.5-5.1)
[2019-10-03] MEDS: INSULIN LISPRO 100 UNIT/ML 3ML SQ SCH ×7 (05:47→21:37)
[2019-10-03 08:00] VITALS: BP 138/83
[2019-10-03] MEDS: ASCORBIC ACID 500 MG TAB PO SCH (08:27)
[2019-10-03] MEDS: APIXABAN 2.5 MG TABLET PO SCH ×2 (08:27→21:24)
[2019-10-03] MEDS: DEXAMETHASONE 4 MG TAB PO SCH (08:27)
[2019-10-03] MEDS: FAMOTIDINE/PF 20 MG/2 ML VIAL IV SCH ×2 (08:29→21:21)
--- NOTE | 2019-10-03 10:30 | NUR ---
RESTING IN BED WITH EYES CLOSED, RESP.'S EVEN AND UNLABORED. O2 SAT.-90% PER CONTINUOUS PULSE OXIMETER AT BEDSIDE. CALL LIGHT WITHIN REACH. ROOM BLINDS OPEN. Addendum: 10/03/19 at 2331 by JEANNETTE ROBERTS RN RN CORRECTION-99% O2 SAT.
[2019-10-03 11:30] VITALS: BP 125/61
[2019-10-03] MEDS: ZINC SULFATE 220 CAPSULE PO SCH (11:55)
--- NOTE | 2019-10-03 14:24 | NUR ---
RESTING IN BED, RESP.'S EVEN AND UNLABORED. SPEAKING ON CELLULAR PHONE. O2 SAT PER CONT. PULSE OX. - 99%. CALL LIGHT WITHIN REACH.
[2019-10-03 15:30] VITALS: BP 129/64
[2019-10-03 19:19] VITALS: BP 120/63
[2019-10-03] MEDS: INSULIN GLARGINE 100 UNITS/ML 10 ML VIAL SQ SCH (21:38)
[2019-10-03 23:38] VITALS: BP 148/67
[2019-10-04 03:15] VITALS: BP 127/64
[2019-10-04 04:34] LABS: BASOPHILS % (AUTO) 0.2 % (0.0-5.0); EOSINOPHILS % (AUTO) 3.2 % (0.0-8.0); HEMATOCRIT 40.2 % (42-54); LYMPHOCYTES % (AUTO) 8.4 % (21.0-51.0); MEAN CORPUSCULAR HGB CONC 33.6 g/dL (32.0-36.0); MEAN CORPUSCULAR VOLUME 95.3 fL (79-99); MONOCYTES % (AUTO) 6.5 % (3.0-13.0); NEUTROPHILS % (AUTO) 80.7 % (40.0-77.0); PLATELET COUNT (AUTO) 204 K/uL (130-400); RED BLOOD CELL COUNT(AUTO) 4.22 MIL/uL (4.50-6.20); RED CELL DISTRIBUTION WIDTH 13.7 % (11.0-15.5); WHITE BLOOD COUNT (AUTO) 11.3 K/uL (4.8-10.8)
[2019-10-04 05:03] LABS: CREATININE 0.6 mg/dL (0.5-1.5); CRP QUANTITATIVE 37.9 mg/L (0.00-9.0)
[2019-10-04] MEDS: INSULIN LISPRO 100 UNIT/ML 3ML SQ SCH ×7 (06:32→21:00)
[2019-10-04 08:00] VITALS: BP 117/62
[2019-10-04] MEDS: FAMOTIDINE/PF 20 MG/2 ML VIAL IV SCH ×2 (08:58→22:00)
[2019-10-04] MEDS: ASCORBIC ACID 500 MG TAB PO SCH (08:58)
[2019-10-04] MEDS: DEXAMETHASONE 4 MG TAB PO SCH (08:58)
[2019-10-04] MEDS: APIXABAN 2.5 MG TABLET PO SCH ×2 (08:58→22:00)
[2019-10-04 11:30] VITALS: BP 136/74
[2019-10-04] MEDS: ZINC SULFATE 220 CAPSULE PO SCH (12:26)
[2019-10-04 15:30] VITALS: BP 136/68
[2019-10-04 19:38] VITALS: BP 132/60
[2019-10-04] MEDS: INSULIN GLARGINE 100 UNITS/ML 10 ML VIAL SQ SCH (21:00)
[2019-10-04 23:38] VITALS: BP 138/72
[2019-10-05 03:21] VITALS: BP 115/65
[2019-10-05 05:50] LABS: CRP QUANTITATIVE 70.3 mg/L (0.00-9.0)
[2019-10-05] MEDS: INSULIN LISPRO 100 UNIT/ML 3ML SQ SCH ×8 (06:41→20:43)
[2019-10-05 08:00] VITALS: BP 129/66
[2019-10-05] MEDS: APIXABAN 2.5 MG TABLET PO SCH ×2 (08:43→20:37)
[2019-10-05] MEDS: ASCORBIC ACID 500 MG TAB PO SCH (08:43)
[2019-10-05] MEDS: DEXAMETHASONE 4 MG TAB PO SCH (08:44)
[2019-10-05] MEDS: FAMOTIDINE/PF 20 MG/2 ML VIAL IV SCH ×2 (08:45→20:37)
[2019-10-05 11:30] VITALS: BP 102/59
[2019-10-05] MEDS: ZINC SULFATE 220 CAPSULE PO SCH (12:39)
--- NOTE | 2019-10-05 12:50 | NUR ---
EXERTIONAL SOB NOTED AFTER PCXR. O2 SAT-90%, ON NRB 100% FIO2. ST-125. PT. PENDING TO HAVE MEAL. ASSISTED TO TURN TO LEFT SIDE-LYING POSITION. CONTINUOUS PULSE OXIMETER AT BEDSIDE. O2 SATURATION INCREASED TO 94%, HR DECREASED TO 118. PT. STATES FEELING BETTER BECAUSE HE IS "CALMER." CALL LIGHT WITHIN REACH, VERBALIZED ABILITY TO USE.
[2019-10-05 15:30] VITALS: BP 137/74
[2019-10-05 19:45] VITALS: BP 111/62
[2019-10-05] MEDS: NYSTATIN 15 GM POWDER TP SCH (20:37)
[2019-10-05] MEDS: INSULIN GLARGINE 100 UNITS/ML 10 ML VIAL SQ SCH (20:42)
[2019-10-05 23:39] VITALS: BP 111/65
[2019-10-06 03:17] VITALS: BP 114/54
[2019-10-06] MEDS: INSULIN LISPRO 100 UNIT/ML 3ML SQ SCH ×7 (05:32→21:00)
--- NOTE | 2019-10-06 05:54 | NUR ---
patient oob s assistance/low oxygen levels patient found by charge nurse sitting in bedside commode without nonrebreather nonrebreather placed by charge nurse sandra nurse aide at bedside patient is weak and lethargic placed on nasal cannula 10L in addition to nonrbr replaced pulse oximeter sensor patient oxygen levels in low 70s. patient is too weak to get back into bed. tachycardic but is warm and dry rt loan at bedside to assist with transfer patient repositioned in bed for optimal ventilation oxygen levels leslie up to 90-92% side rails up x3, bed alarm placed, patient reminded not to get out of bed without assistance and reminded about the importance of his oxygen needs. patient verbalized understanding
[2019-10-06 06:04] LABS: BASOPHILS % (AUTO) 0.3 % (0.0-5.0); EOSINOPHILS % (AUTO) 2.7 % (0.0-8.0); LYMPHOCYTES % (AUTO) 12.1 % (21.0-51.0); MEAN CORPUSCULAR HGB CONC 32.5 g/dL (32.0-36.0); MEAN CORPUSCULAR VOLUME 95.2 fL (79-99); MONOCYTES % (AUTO) 8.4 % (3.0-13.0); NEUTROPHILS % (AUTO) 75.3 % (40.0-77.0); PLATELET COUNT (AUTO) 270 K/uL (130-400); RED BLOOD CELL COUNT(AUTO) 4.62 MIL/uL (4.50-6.20)
[2019-10-06 06:27] LABS: ALBUMIN 2.3 g/dL (3.5-5.0); BILIRUBIN,TOTAL 1.7 mg/dL (0.2-1.0); CRP QUANTITATIVE 72.7 mg/L (0.00-9.0); POTASSIUM 3.7 mmol/L (3.5-5.1); TOTAL PROTEIN, SERUM 6.7 g/dL (6.0-8.3)
[2019-10-06 08:00] VITALS: BP 118/60
[2019-10-06] MEDS: ASCORBIC ACID 500 MG TAB PO SCH (08:06)
[2019-10-06] MEDS: DEXAMETHASONE 4 MG TAB PO SCH (08:06)
[2019-10-06] MEDS: FAMOTIDINE/PF 20 MG/2 ML VIAL IV SCH ×2 (08:06→21:17)
[2019-10-06] MEDS: APIXABAN 2.5 MG TABLET PO SCH ×2 (08:07→21:18)
[2019-10-06] MEDS: NYSTATIN 15 GM POWDER TP SCH ×2 (08:12→21:19)
[2019-10-06 11:30] VITALS: BP 117/61
--- NOTE | 2019-10-06 11:35 | NUR ---
RESTING IN BED WITH HOB AT 30 DEGREES, RESP.'S EVEN AND UNLABORED. EYES CLOSED. NRB IN PLACE WELL NC. CALL LIGHT WITHIN REACH. O2 SAT.-97%, P-89 PER CONTINUOUS PULSE OXIMETER AT BEDSIDE.
[2019-10-06] MEDS: ZINC SULFATE 220 CAPSULE PO SCH (12:09)
[2019-10-06] MEDS ORDERED: METOPROLOL TARTRATE 1 MG/ML 5ML VIAL IV PRN ×2 (15:00→15:30)
[2019-10-06 15:30] VITALS: BP 128/60
[2019-10-06 19:36] VITALS: BP 130/54
[2019-10-06] MEDS: METOPROLOL TARTRATE 25 MG TAB PO SCH (21:18)
[2019-10-06] MEDS: INSULIN GLARGINE 100 UNITS/ML 10 ML VIAL SQ SCH (21:19)
[2019-10-06 23:07] VITALS: BP 125/48
[2019-10-07 03:41] VITALS: BP 105/48
[2019-10-07 05:37] LABS: BASOPHILS % (AUTO) 0.2 % (0.0-5.0); EOSINOPHILS % (AUTO) 3.2 % (0.0-8.0); HEMATOCRIT 38.7 % (42-54); LYMPHOCYTES % (AUTO) 7.1 % (21.0-51.0); MEAN CORPUSCULAR HEMOGLOBIN 31.5 pg (27.0-33.0); MEAN CORPUSCULAR HGB CONC 33.3 g/dL (32.0-36.0); MEAN CORPUSCULAR VOLUME 94.4 fL (79-99); MONOCYTES % (AUTO) 7.4 % (3.0-13.0); NEUTROPHILS % (AUTO) 81.1 % (40.0-77.0); PLATELET COUNT (AUTO) 215 K/uL (130-400); RED CELL DISTRIBUTION WIDTH 14.1 % (11.0-15.5); WHITE BLOOD COUNT (AUTO) 14.6 K/uL (4.8-10.8)
[2019-10-07 05:55] LABS: ALBUMIN 1.9 g/dL (3.5-5.0); BILIRUBIN,TOTAL 1.4 mg/dL (0.2-1.0); CREATININE 0.8 mg/dL (0.5-1.5); POTASSIUM 3.5 mmol/L (3.5-5.1); TOTAL PROTEIN, SERUM 5.9 g/dL (6.0-8.3)
[2019-10-07] MEDS: INSULIN LISPRO 100 UNIT/ML 3ML SQ SCH ×7 (07:30→21:00)
[2019-10-07 08:00] VITALS: BP 111/57
[2019-10-07] MEDS: METOPROLOL TARTRATE 25 MG TAB PO SCH ×2 (09:29→21:28)
[2019-10-07] MEDS: APIXABAN 2.5 MG TABLET PO SCH ×2 (09:29→21:28)
[2019-10-07] MEDS: FAMOTIDINE/PF 20 MG/2 ML VIAL IV SCH ×2 (09:30→21:28)
[2019-10-07] MEDS: ASCORBIC ACID 500 MG TAB PO SCH (09:30)
[2019-10-07] MEDS: DEXAMETHASONE 4 MG TAB PO SCH (09:34)
[2019-10-07] MEDS: NYSTATIN 15 GM POWDER TP SCH ×2 (09:45→21:29)
[2019-10-07 11:30] VITALS: BP 112/56
[2019-10-07] MEDS: ZINC SULFATE 220 CAPSULE PO SCH (12:05)
[2019-10-07 15:30] VITALS: BP 120/63
[2019-10-07] MEDS: FLUCONAZOLE 100 MG TAB PO SCH (17:02)
[2019-10-07 19:00] VITALS: BP 131/62
[2019-10-07] MEDS: INSULIN GLARGINE 100 UNITS/ML 10 ML VIAL SQ SCH (21:36)
[2019-10-07 23:00] VITALS: BP 127/55
[2019-10-08 03:56] VITALS: BP 145/54
[2019-10-08 05:30] LABS: BASOPHILS % (AUTO) 0.1 % (0.0-5.0); EOSINOPHILS % (AUTO) 1.9 % (0.0-8.0); HEMATOCRIT 40.6 % (42-54); MEAN CORPUSCULAR HEMOGLOBIN 31.2 pg (27.0-33.0); MEAN CORPUSCULAR HGB CONC 32.8 g/dL (32.0-36.0); MEAN CORPUSCULAR VOLUME 95.3 fL (79-99); MONOCYTES % (AUTO) 7.2 % (3.0-13.0); NEUTROPHILS % (AUTO) 80.6 % (40.0-77.0); PLATELET COUNT (AUTO) 229 K/uL (130-400); RED BLOOD CELL COUNT(AUTO) 4.26 MIL/uL (4.50-6.20); RED CELL DISTRIBUTION WIDTH 14.4 % (11.0-15.5); WHITE BLOOD COUNT (AUTO) 13.7 K/uL (4.8-10.8)
[2019-10-08 05:56] LABS: BILIRUBIN,TOTAL 1.6 mg/dL (0.2-1.0); CREATININE 0.8 mg/dL (0.5-1.5); TOTAL PROTEIN, SERUM 6.1 g/dL (6.0-8.3)
[2019-10-08 07:00] VITALS: BP 131/68
[2019-10-08] MEDS: INSULIN LISPRO 100 UNIT/ML 3ML SQ SCH ×7 (07:30→21:00)
--- NOTE | 2019-10-08 08:30 | NUR ---
AM ASSESSMENT PT AWAKE AND ALERT, O2 PER NRB MASK, ASSISTANCE WITH ADLS, GENERALIZED WEAKNESS. CALL LIGHT WITHIN REACH.
[2019-10-08] MEDS: DEXAMETHASONE 4 MG TAB PO SCH (09:44)
[2019-10-08] MEDS: APIXABAN 2.5 MG TABLET PO SCH ×2 (09:49→22:30)
[2019-10-08] MEDS: ASCORBIC ACID 500 MG TAB PO SCH (09:50)
[2019-10-08] MEDS: FAMOTIDINE/PF 20 MG/2 ML VIAL IV SCH ×2 (09:50→22:31)
[2019-10-08] MEDS: FLUCONAZOLE 100 MG TAB PO SCH (09:50)
[2019-10-08] MEDS: METOPROLOL TARTRATE 25 MG TAB PO SCH ×2 (09:50→22:31)
[2019-10-08] MEDS: NYSTATIN 15 GM POWDER TP SCH ×2 (09:51→21:00)
[2019-10-08 11:00] VITALS: BP 113/53
[2019-10-08] MEDS: ZINC SULFATE 220 CAPSULE PO SCH (12:47)
[2019-10-08 16:00] VITALS: BP 130/68
[2019-10-08 20:56] VITALS: BP 144/71
[2019-10-08] MEDS: INSULIN GLARGINE 100 UNITS/ML 10 ML VIAL SQ SCH (22:36)
[2019-10-09] VITALS: BP 121/71
[2019-10-09 04:00] VITALS: BP 141/76
[2019-10-09 04:01] LABS: ABG BASE EXCESS 3.7 mmol/L (-2.0-3.0); ABG HCO3 26.6 mmol/L (21.0-28.0); ABG OXYGEN SATURATION 90.6 % (95.0-99.0); ABG PCO2 35 mmHg (35-48)
[2019-10-09] MEDS: INSULIN LISPRO 100 UNIT/ML 3ML SQ SCH ×7 (06:24→21:00)
[2019-10-09 06:27] LABS: BASOPHILS % (AUTO) 0.1 % (0.0-5.0); HEMATOCRIT 39.4 % (42-54); LYMPHOCYTES % (AUTO) 5.9 % (21.0-51.0); MEAN CORPUSCULAR HEMOGLOBIN 31.2 pg (27.0-33.0); MEAN CORPUSCULAR VOLUME 94.5 fL (79-99); MONOCYTES % (AUTO) 6.3 % (3.0-13.0); NEUTROPHILS % (AUTO) 86.5 % (40.0-77.0); PLATELET COUNT (AUTO) 247 K/uL (130-400); RED BLOOD CELL COUNT(AUTO) 4.17 MIL/uL (4.50-6.20); RED CELL DISTRIBUTION WIDTH 14.3 % (11.0-15.5)
[2019-10-09 06:45] LABS: CREATININE 0.8 mg/dL (0.5-1.5); POTASSIUM 4.3 mmol/L (3.5-5.1)
[2019-10-09 08:49] VITALS: BP 128/66
[2019-10-09] MEDS: FAMOTIDINE/PF 20 MG/2 ML VIAL IV SCH ×2 (09:55→20:02)
[2019-10-09] MEDS: ASCORBIC ACID 500 MG TAB PO SCH (09:56)
[2019-10-09] MEDS: METOPROLOL TARTRATE 25 MG TAB PO SCH ×2 (09:56→20:03)
[2019-10-09] MEDS: APIXABAN 2.5 MG TABLET PO SCH ×2 (09:57→20:03)
[2019-10-09] MEDS: NYSTATIN 15 GM POWDER TP SCH ×2 (09:58→20:07)
[2019-10-09] MEDS: DEXAMETHASONE 4 MG TAB PO SCH (09:58)
[2019-10-09] MEDS: FLUCONAZOLE 100 MG TAB PO SCH (09:58)
[2019-10-09 11:30] VITALS: BP 117/74
[2019-10-09] MEDS: ZINC SULFATE 220 CAPSULE PO SCH (12:24)
[2019-10-09 15:35] VITALS: BP 135/70
[2019-10-09 20:00] VITALS: BP 152/75
[2019-10-09] MEDS: INSULIN GLARGINE 100 UNITS/ML 10 ML VIAL SQ SCH (20:07)
--- NOTE | 2019-10-09 22:44 | NUR ---
Patient A/OX3. DENIES PAIN. SOB WITH EXERTION. PATIENT DOES BECOME TACHYPNEIC WITH EXERTION AND O2 SATS DROP BELOW 90% LOW AT 79%. CURRENTLY USING 02 NC AT 15 AND NRB AT 100%. PATIENT BRIEF SOILED, CHANGED. ONE BM NOTED FOR NIGH SHIFT. WILL CHECK SATS IN AM PRIOR TO BED BATH. IF SATS CONTINUE TO DROP BATH WILL NOT BE ADMINISTERED. PATIENT IN NSR. ALL LUNGS DIMINISHED..
[2019-10-10 00:12] VITALS: BP 142/68
[2019-10-10 04:30] VITALS: BP 132/61
[2019-10-10 05:50] LABS: BASOPHILS % (AUTO) 0.1 % (0.0-5.0); EOSINOPHILS % (AUTO) 0.1 % (0.0-8.0); HEMATOCRIT 41.8 % (42-54); LYMPHOCYTES % (AUTO) 6.8 % (21.0-51.0); MEAN CORPUSCULAR HEMOGLOBIN 31.6 pg (27.0-33.0); MEAN CORPUSCULAR HGB CONC 33.3 g/dL (32.0-36.0); MONOCYTES % (AUTO) 5.5 % (3.0-13.0); NEUTROPHILS % (AUTO) 86.2 % (40.0-77.0); PLATELET COUNT (AUTO) 292 K/uL (130-400); RED CELL DISTRIBUTION WIDTH 14.2 % (11.0-15.5); WHITE BLOOD COUNT (AUTO) 14.5 K/uL (4.8-10.8)
--- NOTE | 2019-10-10 06:30 | NUR ---
patient was on nc 15L and NRB. O2 sats between 77-85% sustaining. Resp pt pt on bipap. MD Gary called at [phone]. NO answer. Hospitalist paged for orders.
[2019-10-10 07:00] LABS: CREATININE 0.7 mg/dL (0.5-1.5); CRP QUANTITATIVE 94.9 mg/L (0.00-9.0); POTASSIUM 4.1 mmol/L (3.5-5.1)
[2019-10-10] MEDS: INSULIN LISPRO 100 UNIT/ML 3ML SQ SCH ×7 (07:10→20:22)
[2019-10-10 08:00] VITALS: BP 151/68
[2019-10-10] MEDS: DEXMEDETOMIDINE HCL 200 MCG in SODIUM CHLORIDE 0.9% 50 ML IV SCH ×2 (08:23→15:28)
[2019-10-10] MEDS: FLUCONAZOLE 100 MG TAB PO SCH (09:00)
[2019-10-10] MEDS: APIXABAN 2.5 MG TABLET PO SCH ×2 (09:00→20:20)
[2019-10-10] MEDS: METOPROLOL TARTRATE 25 MG TAB PO SCH ×2 (09:00→20:20)
[2019-10-10] MEDS: NYSTATIN 15 GM POWDER TP SCH ×2 (09:00→20:24)
[2019-10-10] MEDS: DEXAMETHASONE 4 MG TAB PO SCH (09:00)
[2019-10-10] MEDS: ASCORBIC ACID 500 MG TAB PO SCH (09:00)
[2019-10-10] MEDS: FAMOTIDINE/PF 20 MG/2 ML VIAL IV SCH ×2 (10:30→20:01)
[2019-10-10] MEDS: ZINC SULFATE 220 CAPSULE PO SCH (11:21)
[2019-10-10 12:00] VITALS: BP 121/67
--- NOTE | 2019-10-10 15:51 | NUR ---
ORDER FOR LTACH REVIEWED BY FRANKLYN CURRENTLY UNINUSRED- NO KRUPA SOURCE FOR LTACH REFERRAL PATIENT STILL ON VERY HIGH LEVELS OF OXYGEN. Addendum: 10/10/19 at 1554 by CATARINO SANCHEZ RN CM Amended: Links added.
[2019-10-10 16:34] VITALS: BP 119/66
[2019-10-10] MEDS ORDERED: DEXTROSE 50%-WATER 50 ML DISP.SYRIN IV ONE (16:49)
--- NOTE | 2019-10-10 17:36 | NUR ---
Nursing Note 0700 Patient having a severe panic attack with bipap on called Dr. Mccullough received order for Precedex to keep patient calm. 1710 Patient had a 75mg/dL blood sugar attempted to give juice. Patient did not tolerate oral intake will keep NPO. Gave 1/2 amp of dextrose 50% to cover any hypoglycemia. Patient appears asymptomatic at this time will continue to monitor. Addendum: 10/10/19 at 1751 by DINESH FREY RN RN [id number] Spoke with family daughter Aster Frey regarding patients change in condition and requirement of bipap to keep patients saturation stable. They are aware of deteriorating condition and next step could possibly be intubation if condition continues to decline. I have given information on patient outcomes with intubation as per Doctor Mccullough request. They are aware due to patients medical history and age he would be unlikely to survive intubation and we may prolong suffering. All family questions answered. Asked family to speak amongst themselves and come to a desicion regarding code status they agreed to speak to each other and would come to a decision tomorrow regarding code status. They were informed he will remain full code for now and his condition may get worse and require intubation overnight. Family is ok with this at this time.
[2019-10-10] MEDS ORDERED: DEXTROSE 50%-WATER 25 GM/50 ML VIAL IV SCH (18:30)
[2019-10-10] MEDS: INSULIN GLARGINE 100 UNITS/ML 10 ML VIAL SQ SCH (20:23)
[2019-10-10 20:39] VITALS: BP 105/53
--- NOTE | 2019-10-10 22:49 | NUR ---
Nursing Note 4619 reported decreased urinary output to Dr. Chaudhari (credit control administrator), last void recorded 1100 this morning. Instructed to bladder scan and straight cath if bladder scan was greater than 800cc. Upon re-entering patient's room noted that had voided at that time, approximately 1030. Completed bladder, post void scan resulted 260cc.
[2019-10-11] VITALS (9 sets, daily range): BP systolic 113–134; BP diastolic 54–76
[2019-10-11] MEDS: DEXMEDETOMIDINE HCL 400 MCG in SODIUM CHLORIDE 0.9% 100 ML IV SCH ×3 (04:24→16:36)
[2019-10-11] MEDS: INSULIN LISPRO 100 UNIT/ML 3ML SQ SCH ×7 (05:32→21:00)
[2019-10-11 05:45] LABS: BASOPHILS % (AUTO) 0.2 % (0.0-5.0); EOSINOPHILS % (AUTO) 0.2 % (0.0-8.0); HEMATOCRIT 42.7 % (42-54); LYMPHOCYTES % (AUTO) 5.5 % (21.0-51.0); MEAN CORPUSCULAR HEMOGLOBIN 31.1 pg (27.0-33.0); MEAN CORPUSCULAR HGB CONC 32.6 g/dL (32.0-36.0); MEAN CORPUSCULAR VOLUME 95.5 fL (79-99); MONOCYTES % (AUTO) 5.6 % (3.0-13.0); NEUTROPHILS % (AUTO) 87.5 % (40.0-77.0); PLATELET COUNT (AUTO) 299 K/uL (130-400); RED BLOOD CELL COUNT(AUTO) 4.47 MIL/uL (4.50-6.20); RED CELL DISTRIBUTION WIDTH 14.2 % (11.0-15.5); WHITE BLOOD COUNT (AUTO) 17.6 K/uL (4.8-10.8)
[2019-10-11 06:04] LABS: ALBUMIN 2.1 g/dL (3.5-5.0); BILIRUBIN,TOTAL 1.6 mg/dL (0.2-1.0); CREATININE 0.7 mg/dL (0.5-1.5); POTASSIUM 4.8 mmol/L (3.5-5.1)
[2019-10-11] MEDS: APIXABAN 2.5 MG TABLET PO SCH (09:00)
[2019-10-11] MEDS: NYSTATIN 15 GM POWDER TP SCH ×2 (09:00→21:30)
[2019-10-11] MEDS: FLUCONAZOLE 100 MG TAB PO SCH (09:00)
[2019-10-11] MEDS: METOPROLOL TARTRATE 25 MG TAB PO SCH ×2 (09:00→20:58)
[2019-10-11] MEDS: ASCORBIC ACID 500 MG TAB PO SCH (09:00)
[2019-10-11] MEDS: DEXAMETHASONE SOD PHOSPHATE 4 MG/ML 1ML VIAL IVP SCH (10:14)
[2019-10-11] MEDS: FAMOTIDINE/PF 20 MG/2 ML VIAL IV SCH ×2 (10:14→20:58)
--- NOTE | 2019-10-11 11:22 | NUR ---
DC PLAN ORDER RECEIVED FOR LTAC PATIENT SELF PAY NOT AVAILABLE. MOVED TO ICU ON BIPAP RESPIRATIONS 30. PATIENT CONDITION GUARDED. Addendum: 10/11/19 at 1123 by TRESA PADRON RN CM Amended: Links added.
[2019-10-11] MEDS: ZINC SULFATE 220 CAPSULE PO SCH (12:00)
[2019-10-11] MEDS: ENOXAPARIN SODIUM 60 MG/0.6 ML SQ SCH (20:58)
[2019-10-11] MEDS: INSULIN GLARGINE 100 UNITS/ML 10 ML VIAL SQ SCH (23:23)
[2019-10-12] VITALS (9 sets, daily range): BP systolic 107–134; BP diastolic 62–74
[2019-10-12 04:35] LABS: BASOPHILS % (AUTO) 0.2 % (0.0-5.0); HEMATOCRIT 39.9 % (42-54); LYMPHOCYTES % (AUTO) 5.3 % (21.0-51.0); MEAN CORPUSCULAR HEMOGLOBIN 31.5 pg (27.0-33.0); MEAN CORPUSCULAR HGB CONC 32.3 g/dL (32.0-36.0); MEAN CORPUSCULAR VOLUME 97.3 fL (79-99); MONOCYTES % (AUTO) 5.4 % (3.0-13.0); NEUTROPHILS % (AUTO) 87.9 % (40.0-77.0); PLATELET COUNT (AUTO) 285 K/uL (130-400); RED CELL DISTRIBUTION WIDTH 14.5 % (11.0-15.5); WHITE BLOOD COUNT (AUTO) 11.9 K/uL (4.8-10.8)
[2019-10-12 05:22] LABS: ALBUMIN 1.9 g/dL (3.5-5.0); BILIRUBIN,TOTAL 1.3 mg/dL (0.2-1.0); CREATININE 0.8 mg/dL (0.5-1.5); POTASSIUM 4.2 mmol/L (3.5-5.1); TOTAL PROTEIN, SERUM 6.6 g/dL (6.0-8.3)
[2019-10-12 06:19] LABS: CRP QUANTITATIVE 168.7 mg/L (0.00-9.0)
[2019-10-12] MEDS: INSULIN LISPRO 100 UNIT/ML 3ML SQ SCH ×7 (07:30→21:00)
[2019-10-12] MEDS: ASCORBIC ACID 500 MG TAB PO SCH (08:42)
[2019-10-12] MEDS: METOPROLOL TARTRATE 25 MG TAB PO SCH ×2 (08:42→21:00)
[2019-10-12] MEDS: FLUCONAZOLE 100 MG TAB PO SCH (08:42)
[2019-10-12] MEDS: NYSTATIN 15 GM POWDER TP SCH ×2 (09:00→21:00)
[2019-10-12] MEDS: ENOXAPARIN SODIUM 60 MG/0.6 ML SQ SCH ×2 (09:00→21:00)
[2019-10-12] MEDS: DEXAMETHASONE SOD PHOSPHATE 4 MG/ML 1ML VIAL IVP SCH (09:00)
[2019-10-12] MEDS: FLUCONAZOLE 200 MG/NS 100 ML 100 ML IV SCH (09:00)
[2019-10-12] MEDS: FAMOTIDINE/PF 20 MG/2 ML VIAL IV SCH ×2 (09:00→21:00)
[2019-10-12] MEDS: ZINC SULFATE 220 CAPSULE PO SCH (12:00)
[2019-10-12] MEDS: INSULIN GLARGINE 100 UNITS/ML 10 ML VIAL SQ SCH (21:00)
[2019-10-13] VITALS (11 sets, daily range): BP systolic 106–136; BP diastolic 54–83
[2019-10-13 04:47] LABS: BASOPHILS % (AUTO) 0.1 % (0.0-5.0); HEMATOCRIT 43.4 % (42-54); LYMPHOCYTES % (AUTO) 4.9 % (21.0-51.0); MEAN CORPUSCULAR HEMOGLOBIN 31.1 pg (27.0-33.0); MEAN CORPUSCULAR HGB CONC 31.3 g/dL (32.0-36.0); MEAN CORPUSCULAR VOLUME 99.1 fL (79-99); MONOCYTES % (AUTO) 5.2 % (3.0-13.0); PLATELET COUNT (AUTO) 315 K/uL (130-400); RED BLOOD CELL COUNT(AUTO) 4.38 MIL/uL (4.50-6.20); RED CELL DISTRIBUTION WIDTH 14.4 % (11.0-15.5); WHITE BLOOD COUNT (AUTO) 13.8 K/uL (4.8-10.8)
[2019-10-13 05:04] LABS: ALBUMIN 1.8 g/dL (3.5-5.0); BILIRUBIN,TOTAL 0.9 mg/dL (0.2-1.0); CREATININE 0.7 mg/dL (0.5-1.5); CRP QUANTITATIVE 113.5 mg/L (0.00-9.0); POTASSIUM 4.2 mmol/L (3.5-5.1); TOTAL PROTEIN, SERUM 6.5 g/dL (6.0-8.3)
[2019-10-13] MEDS: INSULIN LISPRO 100 UNIT/ML 3ML SQ SCH ×7 (07:30→23:19)
[2019-10-13] MEDS: FLUCONAZOLE 200 MG/NS 100 ML 100 ML IV SCH (08:35)
[2019-10-13] MEDS: ENOXAPARIN SODIUM 60 MG/0.6 ML SQ SCH ×2 (08:36→23:23)
[2019-10-13] MEDS: ASCORBIC ACID 500 MG TAB PO SCH (08:36)
[2019-10-13] MEDS: DEXAMETHASONE SOD PHOSPHATE 4 MG/ML 1ML VIAL IVP SCH (08:36)
[2019-10-13] MEDS: FAMOTIDINE/PF 20 MG/2 ML VIAL IV SCH ×2 (08:36→23:20)
[2019-10-13] MEDS: METOPROLOL TARTRATE 25 MG TAB PO SCH ×2 (08:37→21:00)
[2019-10-13] MEDS: NYSTATIN 15 GM POWDER TP SCH ×2 (09:00→21:00)
[2019-10-13] MEDS: FLUCONAZOLE 100 MG TAB PO SCH (09:00)
[2019-10-13] MEDS: ZINC SULFATE 220 CAPSULE PO SCH (12:00)
[2019-10-13] MEDS: DEXMEDETOMIDINE HCL 400 MCG in SODIUM CHLORIDE 0.9% 100 ML IV SCH (20:36)
[2019-10-13] MEDS: INSULIN GLARGINE 100 UNITS/ML 10 ML VIAL SQ SCH (23:08)
[2019-10-14] VITALS (21 sets, daily range): BP systolic 94–170; BP diastolic 55–83
[2019-10-14] MEDS: DEXMEDETOMIDINE HCL 400 MCG in SODIUM CHLORIDE 0.9% 100 ML IV SCH ×4 (00:51→23:50)
[2019-10-14 05:27] LABS: BASOPHILS % (AUTO) 0.2 % (0.0-5.0); HEMATOCRIT 44.4 % (42-54); LYMPHOCYTES % (AUTO) 5.7 % (21.0-51.0); MEAN CORPUSCULAR HGB CONC 31.1 g/dL (32.0-36.0); MEAN CORPUSCULAR VOLUME 99.8 fL (79-99); MONOCYTES % (AUTO) 4.8 % (3.0-13.0); NEUTROPHILS % (AUTO) 88.5 % (40.0-77.0); PLATELET COUNT (AUTO) 291 K/uL (130-400); RED BLOOD CELL COUNT(AUTO) 4.45 MIL/uL (4.50-6.20); RED CELL DISTRIBUTION WIDTH 14.6 % (11.0-15.5); WHITE BLOOD COUNT (AUTO) 11.1 K/uL (4.8-10.8)
[2019-10-14 05:59] LABS: INR 1.08 (0.85-1.15); PARTIAL THROMBOPLASTIN TIME 33.1 SEC (26.3-35.5); PROTHROMBIN TIME 11.6 SEC (9.6-11.6)
[2019-10-14 06:20] LABS: ALBUMIN 1.8 g/dL (3.5-5.0); BILIRUBIN,TOTAL 0.9 mg/dL (0.2-1.0); CREATININE 0.7 mg/dL (0.5-1.5); CRP QUANTITATIVE 57.9 mg/L (0.00-9.0); POTASSIUM 4.2 mmol/L (3.5-5.1); TOTAL PROTEIN, SERUM 6.5 g/dL (6.0-8.3)
[2019-10-14] MEDS: INSULIN LISPRO 100 UNIT/ML 3ML SQ SCH ×4 (08:00→21:00)
[2019-10-14] MEDS: NYSTATIN 15 GM POWDER TP SCH ×2 (09:00→21:00)
[2019-10-14] MEDS: FLUCONAZOLE 200 MG/NS 100 ML 100 ML IV SCH (09:00)
[2019-10-14] MEDS: DEXAMETHASONE SOD PHOSPHATE 4 MG/ML 1ML VIAL IVP SCH (09:00)
[2019-10-14] MEDS: FLUCONAZOLE 100 MG TAB PO SCH (09:00)
[2019-10-14] MEDS: ENOXAPARIN SODIUM 60 MG/0.6 ML SQ SCH ×2 (09:00→21:00)
[2019-10-14] MEDS: FAMOTIDINE/PF 20 MG/2 ML VIAL IV SCH (09:00)
[2019-10-14] MEDS: METOPROLOL TARTRATE 25 MG TAB PO SCH ×2 (09:00→21:00)
[2019-10-14] MEDS: ASCORBIC ACID 500 MG TAB PO SCH (09:00)
[2019-10-14] MEDS: CLONAZEPAM 1 MG TABLET PO SCH ×2 (10:45→21:00)
[2019-10-14] MEDS: ZINC SULFATE 220 CAPSULE PO SCH (12:00)
[2019-10-14] MEDS ORDERED: PROPOFOL 1000 MG/100 ML 100 ML IV ONE (15:36)
--- NOTE | 2019-10-14 15:51 | NUR ---
DYSPHAGIA EVAL COMPLETED. +S/S OF ASPIRATION WITH ALL TEXTURES. RECOMMEND NPO, SHORT TERM ALTERNATE MEANS OF NUTRITION HYDRATION (NG TUBE VS IV (PPN/TPN)) PLEASE CONSIDER IV FEEDING SECONDARY TO Pt'S POOR RESPIRATORY STATUS. NG TUBE MAY OBSTRUCT BONILLA AND NEGATIVELY AFFECT RESPIRATORY STATUS. Addendum: 10/14/19 at 1554 by RYANN GARCIA, [facility] ST Amended: Links added.
--- NOTE | 2019-10-14 17:02 | NUR ---
Shift note Dysphagia eval completed. Pt was unable to tolerate ingestion of foods wihthout coughing. Recommendation for NGT vs PPN/TPN. Consider airway obstruction with NGT. Pt was place on observation due to him removing mittens and both peripheral IVs. 18 G placed in right wrist and 22G in left forearm for Precedex and IV abx infusions. Bath given. Pt had wet/soiled brief. Family was able to Facetime pt for comfort. 1st dose of BID Clonazepam given prior to eval. Will notify MD to consider alternative.
[2019-10-14] MEDS ORDERED: LORAZEPAM 2 MG/ML 1 ML VIAL IVP PRN (17:30)
[2019-10-14] MEDS ORDERED: DEXTROSE 5%-WATER 1,000 ML IV SCH (18:00)
[2019-10-14] MEDS: INSULIN GLARGINE 100 UNITS/ML 10 ML VIAL SQ SCH ×2 (21:00→22:20)
[2019-10-15] VITALS (14 sets, daily range): BP systolic 87–192; BP diastolic 53–94
[2019-10-15] MEDS ORDERED: HYDRALAZINE HCL 20 MG/ML VIAL ONE (00:37)
[2019-10-15] MEDS: DEXMEDETOMIDINE HCL 400 MCG in SODIUM CHLORIDE 0.9% 100 ML IV SCH ×3 (03:00→23:43)
--- NOTE | 2019-10-15 03:14 | NUR ---
PT SLIGHTLY AGITATED. SITTER @ BEDSIDE D5W @ 75, Precedex 1.5 mcg/kg/hr Will cont to monitor Addendum: 10/15/19 at 0339 by Shahida Pearl RN RN Amended: Links added.
[2019-10-15 03:44] LABS: BASOPHILS % (AUTO) 0.1 % (0.0-5.0); EOSINOPHILS % (AUTO) 0.1 % (0.0-8.0); HEMATOCRIT 44.9 % (42-54); LYMPHOCYTES % (AUTO) 5.1 % (21.0-51.0); MEAN CORPUSCULAR HEMOGLOBIN 30.8 pg (27.0-33.0); MEAN CORPUSCULAR HGB CONC 31.2 g/dL (32.0-36.0); MEAN CORPUSCULAR VOLUME 98.9 fL (79-99); MONOCYTES % (AUTO) 4.1 % (3.0-13.0); PLATELET COUNT (AUTO) 278 K/uL (130-400); RED BLOOD CELL COUNT(AUTO) 4.54 MIL/uL (4.50-6.20); RED CELL DISTRIBUTION WIDTH 14.6 % (11.0-15.5); WHITE BLOOD COUNT (AUTO) 10.4 K/uL (4.8-10.8)
[2019-10-15 04:02] LABS: INR 1.08 (0.85-1.15); PARTIAL THROMBOPLASTIN TIME 32.5 SEC (26.3-35.5); PROTHROMBIN TIME 11.6 SEC (9.6-11.6)
[2019-10-15 04:10] LABS: ALBUMIN 1.9 g/dL (3.5-5.0); CREATININE 0.9 mg/dL (0.5-1.5); POTASSIUM 3.8 mmol/L (3.5-5.1); TOTAL PROTEIN, SERUM 6.4 g/dL (6.0-8.3)
[2019-10-15] MEDS: INSULIN LISPRO 100 UNIT/ML 3ML SQ SCH ×11 (08:00→18:11)
[2019-10-15] MEDS: FAMOTIDINE/PF 20 MG/2 ML VIAL IV SCH ×2 (08:34→23:40)
[2019-10-15] MEDS: FLUCONAZOLE 200 MG/NS 100 ML 100 ML IV SCH (08:37)
[2019-10-15] MEDS: FLUCONAZOLE 100 MG TAB PO SCH (08:37)
[2019-10-15] MEDS: DEXAMETHASONE SOD PHOSPHATE 4 MG/ML 1ML VIAL IVP SCH (08:37)
[2019-10-15] MEDS: ENOXAPARIN SODIUM 60 MG/0.6 ML SQ SCH ×2 (08:38→23:45)
[2019-10-15] MEDS: METOPROLOL TARTRATE 25 MG TAB PO SCH ×2 (09:00→21:00)
[2019-10-15] MEDS: NYSTATIN 15 GM POWDER TP SCH ×2 (09:00→21:00)
[2019-10-15] MEDS: CLONAZEPAM 1 MG TABLET PO SCH ×2 (09:00→23:44)
[2019-10-15] MEDS ORDERED: ZIPRASIDONE MESYLATE 20 MG/VIAL IM SCH (11:45)
--- NOTE | 2019-10-15 13:45 | NUR ---
RD FOLLOW UP Pt pending NGT placement. Recommend initiate continuous tube feedings with Glucerna 1.5 initiated at 10mls/hr. Goal rate 45mls/hr. Recommend Flushes 130mls Q6hrs. Recommendations faxed to 2C [phone]), RD to follow up with with RN. Nutrition Note: Pt s/p ST eval. Short term alternate means nutrition recommended (TPN vs TPN/PPN). Pt pending possible NGT placement at time of screen. Na 155, Cl 118, BG 309, Alb 1.9. RD to follow up. Please notify as additional nutrition concerns arise. Thank you.
[2019-10-15] MEDS: ZIPRASIDONE MESYLATE 20 MG/VIAL IM SCH (23:46)
[2019-10-15] MEDS: INSULIN GLARGINE 100 UNITS/ML 10 ML VIAL SQ SCH (23:55)
[2019-10-16] VITALS (7 sets, daily range): BP systolic 112–152; BP diastolic 57–75
[2019-10-16 04:03] LABS: BASOPHILS % (AUTO) 0.1 % (0.0-5.0); LYMPHOCYTES % (AUTO) 5.1 % (21.0-51.0); MEAN CORPUSCULAR HEMOGLOBIN 31.1 pg (27.0-33.0); MEAN CORPUSCULAR HGB CONC 30.9 g/dL (32.0-36.0); MEAN CORPUSCULAR VOLUME 100.7 fL (79-99); MONOCYTES % (AUTO) 4.3 % (3.0-13.0); NEUTROPHILS % (AUTO) 89.8 % (40.0-77.0); PLATELET COUNT (AUTO) 252 K/uL (130-400); RED BLOOD CELL COUNT(AUTO) 4.37 MIL/uL (4.50-6.20); RED CELL DISTRIBUTION WIDTH 14.4 % (11.0-15.5); WHITE BLOOD COUNT (AUTO) 13.7 K/uL (4.8-10.8)
[2019-10-16 04:16] LABS: INR 1.03 (0.85-1.15); PARTIAL THROMBOPLASTIN TIME 33.3 SEC (26.3-35.5); PROTHROMBIN TIME 11.1 SEC (9.6-11.6)
[2019-10-16 04:31] LABS: ALBUMIN 1.8 g/dL (3.5-5.0); BILIRUBIN,TOTAL 0.9 mg/dL (0.2-1.0); CREATININE 0.8 mg/dL (0.5-1.5); POTASSIUM 3.5 mmol/L (3.5-5.1); TOTAL PROTEIN, SERUM 6.2 g/dL (6.0-8.3)
[2019-10-16 04:47] LABS: PLATELET MORPHOLOGY LARGE PLTS PRESENT
[2019-10-16] MEDS: INSULIN LISPRO 100 UNIT/ML 3ML SQ SCH ×10 (06:00→22:31)
[2019-10-16] MEDS ORDERED: DEXTROSE 5%-WATER 1,000 ML IV ONE (08:03)
[2019-10-16] MEDS: METOPROLOL TARTRATE 25 MG TAB PO SCH ×2 (08:21→21:58)
[2019-10-16] MEDS: FLUCONAZOLE 100 MG TAB PO SCH (08:21)
[2019-10-16] MEDS: CLONAZEPAM 1 MG TABLET PO SCH ×2 (08:21→21:58)
[2019-10-16] MEDS: NYSTATIN 15 GM POWDER TP SCH ×2 (08:22→21:00)
[2019-10-16] MEDS: DEXMEDETOMIDINE HCL 400 MCG in SODIUM CHLORIDE 0.9% 100 ML IV SCH (08:23)
[2019-10-16] MEDS: FLUCONAZOLE 200 MG/NS 100 ML 100 ML IV SCH (08:36)
[2019-10-16] MEDS: FAMOTIDINE/PF 20 MG/2 ML VIAL IV SCH ×2 (08:36→21:58)
[2019-10-16] MEDS: DEXAMETHASONE SOD PHOSPHATE 4 MG/ML 1ML VIAL IVP SCH (08:37)
[2019-10-16] MEDS: ENOXAPARIN SODIUM 60 MG/0.6 ML SQ SCH ×2 (08:39→21:58)
[2019-10-16] MEDS: ZIPRASIDONE MESYLATE 20 MG/VIAL IM SCH ×2 (09:00→21:59)
--- NOTE | 2019-10-16 12:20 | NUR ---
RECEIVED TRANSFER TO ROOM 223 VIA BED ACCOMPANIED BY JESÚS RN AND Martell DE, [place]. VM IN PLACE AT 50% FIO2. DROWSY. OPENS EYES TO VERBAL COMMAND. MITTS IN PLACE. ADULT BRIEF NOTED, D/I. ALLEVYN FOAM PAD CHANGED TO SACRAL ST. II DECUBITUS. POSITIONED FOR COMFORT. WAFFLE MATTRESS IN PLACE, INFLATED. BED LOW, SIDE RAILS UP X3. ROOM BLINDS OPEN.
--- NOTE | 2019-10-16 12:45 | NUR ---
PT. AWAKE AND ALERT. SPOKE WITH PT. RE:NEED FOR NGT PLACEMENT FOR NUTRITIONAL NEEDS. 14 FR. NGT INSERTED TO RIGHT NARE AND SECURED. ORAL CARE PROVIDED WITH SUCTION SWAB PACK. OROPHARYNGEAL SUCTIONING PROVIDED WITH USE OF 14 FR. SUCTION CATHETER.
--- NOTE | 2019-10-16 13:05 | NUR ---
NGT PLACEMENT VERIFIED BY AIR INJECTION. SRIDHAR ESPINOSA ALSO VERIFIED NGT PLACEMENT.
--- NOTE | 2019-10-16 13:15 | NUR ---
PT. ATTEMPTING TO REMOVE NGT WITH MITTS. ADVISED PT. AGAINST DOING SO DUE TO NEED FOR MEDICATION ADMINISTRATION AND TUBE FEEDINGS. PT. STOPPED ATTEMPTING TO REMOVE NGT.
[2019-10-16] MEDS: METOPROLOL TARTRATE 1 MG/ML 5ML VIAL IV PRN (15:31)
[2019-10-16] MEDS ORDERED: ZIPRASIDONE MESYLATE 20 MG/VIAL IM ONE (21:29)
[2019-10-17] VITALS (7 sets, daily range): BP systolic 86–138; BP diastolic 47–74
[2019-10-17 06:18] LABS: BASOPHILS % (AUTO) 0.2 % (0.0-5.0); EOSINOPHILS % (AUTO) 0.9 % (0.0-8.0); HEMATOCRIT 49.3 % (42-54); LYMPHOCYTES % (AUTO) 3.5 % (21.0-51.0); MEAN CORPUSCULAR HEMOGLOBIN 31.3 pg (27.0-33.0); MEAN CORPUSCULAR VOLUME 100.8 fL (79-99); MONOCYTES % (AUTO) 3.6 % (3.0-13.0); NEUTROPHILS % (AUTO) 91.3 % (40.0-77.0); PLATELET COUNT (AUTO) 396 K/uL (130-400); RED BLOOD CELL COUNT(AUTO) 4.89 MIL/uL (4.50-6.20); RED CELL DISTRIBUTION WIDTH 14.5 % (11.0-15.5); WHITE BLOOD COUNT (AUTO) 21.6 K/uL (4.8-10.8)
[2019-10-17 06:35] LABS: INR 1.06 (0.85-1.15); PARTIAL THROMBOPLASTIN TIME 32.6 SEC (26.3-35.5); PROTHROMBIN TIME 11.4 SEC (9.6-11.6)
[2019-10-17] MEDS: INSULIN LISPRO 100 UNIT/ML 3ML SQ SCH ×6 (06:45→18:48)
[2019-10-17 06:48] LABS: ALBUMIN 1.9 g/dL (3.5-5.0); BILIRUBIN,TOTAL 1.1 mg/dL (0.2-1.0); CREATININE 1.2 mg/dL (0.5-1.5); POTASSIUM 3.8 mmol/L (3.5-5.1); TOTAL PROTEIN, SERUM 6.5 g/dL (6.0-8.3)
[2019-10-17] MEDS: CLONAZEPAM 1 MG TABLET PO SCH (08:27)
[2019-10-17] MEDS: FLUCONAZOLE 100 MG TAB PO SCH (08:27)
[2019-10-17] MEDS: METOPROLOL TARTRATE 25 MG TAB PO SCH ×2 (08:29→20:45)
[2019-10-17] MEDS: ENOXAPARIN SODIUM 60 MG/0.6 ML SQ SCH ×2 (08:29→20:47)
[2019-10-17] MEDS: FLUCONAZOLE 200 MG/NS 100 ML 100 ML IV SCH (08:30)
[2019-10-17] MEDS: DEXAMETHASONE SOD PHOSPHATE 4 MG/ML 1ML VIAL IVP SCH (08:30)
[2019-10-17] MEDS: ZIPRASIDONE MESYLATE 20 MG/VIAL IM SCH ×2 (08:30→20:46)
[2019-10-17] MEDS: FAMOTIDINE/PF 20 MG/2 ML VIAL IV SCH ×2 (08:30→20:45)
--- NOTE | 2019-10-17 08:30 | NUR ---
TURNED AND REPOSITIONED FOR COMFORT. MITTS IN PLACE. Addendum: 10/17/19 at 1922 by JEANNETTE ROBERTS RN RN OROPHARYNGEAL SUCTIONING PERFORMED DUE TO PT. WITH "WET" COUGH. BILE STREAKED YELLOW PHLEGM OBTAINED.
[2019-10-17] MEDS: NYSTATIN 15 GM POWDER TP SCH ×2 (08:31→20:54)
[2019-10-17] MEDS: METOPROLOL TARTRATE 1 MG/ML 5ML VIAL IV PRN (08:52)
[2019-10-17] MEDS ORDERED: DEXTROSE 5%-WATER 1,000 ML IV SCH (10:00)
--- NOTE | 2019-10-17 10:45 | NUR ---
TURNED AND REPOSITIONED FOR COMFORT. MITTS IN PLACE.
--- NOTE | 2019-10-17 13:00 | NUR ---
TURNED AND REPOSITIONED FOR COMFORT. MITTS IN PLACE.
--- NOTE | 2019-10-17 18:00 | NUR ---
TURNED AND REPOSITIONED FOR COMFORT. MITTS IN PLACE.
--- NOTE | 2019-10-17 19:56 | NUR ---
status update received from a.m. shift ,asleep hob elevated , cpap with settings at 10/100 fio2, sats at 92-94% ,hr 102-114, respirations regular mild supraclavicular and substernal retractions,responds to movement only ,non-verbal , no acute distress otherwise ,v/s wnl ,afebrile ,for close watch Addendum: 10/18/19 at 0153 by KIMBERLY REA RN RN Amended: Links added.
[2019-10-17] MEDS: INSULIN GLARGINE 100 UNITS/ML 10 ML VIAL SQ SCH (20:53)
[2019-10-18] VITALS (15 sets, daily range): BP systolic 76–134; BP diastolic 46–70
[2019-10-18] MEDS: INSULIN LISPRO 100 UNIT/ML 3ML SQ SCH ×10 (05:30→23:05)
[2019-10-18 06:11] LABS: BASOPHILS % (AUTO) 0.6 % (0.0-5.0); EOSINOPHILS % (AUTO) 0.3 % (0.0-8.0); HEMATOCRIT 46.2 % (42-54); LYMPHOCYTES % (AUTO) 2.8 % (21.0-51.0); MEAN CORPUSCULAR HGB CONC 30.1 g/dL (32.0-36.0); MEAN CORPUSCULAR VOLUME 103.1 fL (79-99); MONOCYTES % (AUTO) 2.7 % (3.0-13.0); NEUTROPHILS % (AUTO) 92.7 % (40.0-77.0); PLATELET COUNT (AUTO) 256 K/uL (130-400); RED BLOOD CELL COUNT(AUTO) 4.48 MIL/uL (4.50-6.20); RED CELL DISTRIBUTION WIDTH 14.6 % (11.0-15.5); WHITE BLOOD COUNT (AUTO) 17.6 K/uL (4.8-10.8)
[2019-10-18 06:36] LABS: CREATININE 1.7 mg/dL (0.5-1.5); POTASSIUM 4.8 mmol/L (3.5-5.1)
[2019-10-18 07:15] LABS: INR 1.12 (0.85-1.15); PARTIAL THROMBOPLASTIN TIME 43.2 SEC (26.3-35.5)
[2019-10-18] MEDS: METOPROLOL TARTRATE 25 MG TAB PO SCH ×2 (08:08→20:01)
[2019-10-18] MEDS: FLUCONAZOLE 100 MG TAB PO SCH (08:08)
[2019-10-18] MEDS ORDERED: LACTATED RINGERS 1000ML IV SCH ×2 (08:15→12:45)
[2019-10-18] MEDS: DEXAMETHASONE SOD PHOSPHATE 4 MG/ML 1ML VIAL IVP SCH (08:19)
[2019-10-18] MEDS: FAMOTIDINE/PF 20 MG/2 ML VIAL IV SCH ×2 (08:19→20:31)
[2019-10-18] MEDS: ENOXAPARIN SODIUM 60 MG/0.6 ML SQ SCH (08:24)
[2019-10-18] MEDS: NYSTATIN 15 GM POWDER TP SCH ×2 (08:25→20:16)
[2019-10-18] MEDS: ZIPRASIDONE MESYLATE 20 MG/VIAL IM SCH (08:43)
[2019-10-18] MEDS ORDERED: ENOXAPARIN SODIUM 60 MG/0.6 ML SQ SCH (09:00)
--- NOTE | 2019-10-18 11:12 | NUR ---
RD UPDATE RD notification for hypernatremia received. Tube feeding and flushes held as per RN. Pt on CPAP. Recommend increase free water flushes to 200ml Q4hrs once feedings and flushes resumed, as medically feasible. RD to continue to monitor.
--- NOTE | 2019-10-18 11:35 | NUR ---
FAMILY CALL PLACED TO PTS DAUGHTER AND MADE AWARE PT PENDING TO BE TRANSFERRED TO ICU SECONDARY TO LOW BP; PER PT'S DAUGHTER, STATES WILL TALK TO FAMILY REGARDING DNR/DNI STATUS, STATED WOULD CALL BACK. PT AWAKENS WITH VERBAL STIMULATION, MAKES EYE MOVEMENT. O2 SAT 99% ON CPAP, TELEMETRY MONITORING. TOTAL CARE WITH ADLS
[2019-10-18] MEDS ORDERED: RENAL DOSE IV SCH (11:45)
[2019-10-18] MEDS ORDERED: MEROPENEM 500 MG VIAL IV SCH (11:45)
[2019-10-18] MEDS ORDERED: VANCOMYCIN 1GM+NS 250ML 250 ML IV SCH (11:45)
[2019-10-18] MEDS ORDERED: VANCOMYCIN PROTOCOL PER PHARMACY IV PRN (11:45)
[2019-10-18] MEDS ORDERED: VANCOMYCIN PROTOCOL PER PHARMACY IV SCH (12:00)
--- NOTE | 2019-10-18 12:04 | NUR ---
FOLLOW UP COMPLETED. Pt CURRENTLY ON BIPAP. Pt DROWSY AT THIS TIME. REPROGRAPHICS ASSOCIATE COORDINATED WITH NURSE CABRERA. Pt NOT ABLE TO PARTICIPATE IN TRIALS AT THIS TIME. RECOMMEND CONTINUED NPO AT THIS TIME. Addendum: 10/18/19 at 1210 by RYANN GARCIA, [facility] Amended: Links added.
[2019-10-18] MEDS ORDERED: PHARMACY COMMUNICATION MISC SCH ×2 (12:15→17:30)
[2019-10-18] MEDS ORDERED: NOREPINEPHRINE 4MG/NS 250ML 250 ML IV PRN (12:30)
[2019-10-18 12:35] LABS: ABG BASE EXCESS -2.3 mmol/L (-2.0-3.0); ABG HCO3 22.7 mmol/L (21.0-28.0); ABG OXYGEN SATURATION 90.8 % (95.0-99.0); ABG PCO2 40 mmHg (35-48)
[2019-10-18 12:39] LABS: TROPONIN I 0.08 ng/mL (0.00-0.06)
[2019-10-18] MEDS: MEROPENEM 500 MG VIAL IV SCH ×2 (12:46→23:05)
[2019-10-18] MEDS: FLUCONAZOLE 200 MG/NS 100 ML 100 ML IV SCH (12:46)
[2019-10-18] MEDS: VANCOMYCIN 1GM+NS 250ML 250 ML IV SCH (12:47)
--- NOTE | 2019-10-18 13:00 | NUR ---
LR BOLUS DR PEPPER AWARE OF SYSTOLIC BP 70-80'S, ORDERS RECEIVED FOR LR BOLUS, 1 LITER BOLUS INITIATED AT THIS TIME. PT LETHARGIC.
--- NOTE | 2019-10-18 13:30 | NUR ---
lactic acid HOSPITALIST MOR SOLIS AWARE OF ELEVATED LACTIC ACID LEVEL. PT RECEIVING FLUIDS
--- NOTE | 2019-10-18 14:00 | NUR ---
FC FC INSERTED USING STRICT ASEPTIC TECHNIQUE, TOLERATED WELL.
--- NOTE | 2019-10-18 18:00 | NUR ---
ASSESSMENT PT CALM, AWAKENS WITH VERBAL STIMULATION, O2 PER CPAP, O2 SAT 97%, FC IN PLACE AND PATENT. CONTINUES ON LEVOPHED DRIP
[2019-10-18] MEDS: INSULIN GLARGINE 100 UNITS/ML 10 ML VIAL SQ SCH (20:33)
[2019-10-18 20:39] LABS: TROPONIN I 0.09 ng/mL (0.00-0.06)
--- NOTE | 2019-10-18 23:00 | NUR ---
spoke with daughter carrington about patient's condition. she verbalizes that she would like patient to undergo covalescent plasma. she also claims that in case of a cardiac arrest, she does not want the patient to be intubated; she only wants the health care team to do CPR on the patient. humberto deluna, and I both spoke with carrington. she is firm on her decision.
[2019-10-19] VITALS (19 sets, daily range): BP systolic 102–131; BP diastolic 6–87
[2019-10-19 03:45] LABS: TROPONIN I 0.27 ng/mL (0.00-0.06)
[2019-10-19] MEDS: INSULIN LISPRO 100 UNIT/ML 3ML SQ SCH ×3 (05:26→11:30)
[2019-10-19] MEDS: FAMOTIDINE/PF 20 MG/2 ML VIAL IV SCH ×2 (08:34→20:27)
[2019-10-19] MEDS: METOPROLOL TARTRATE 25 MG TAB PO SCH ×2 (08:34→20:27)
[2019-10-19] MEDS: FLUCONAZOLE 200 MG/NS 100 ML 100 ML IV SCH (08:35)
[2019-10-19] MEDS: DEXAMETHASONE SOD PHOSPHATE 4 MG/ML 1ML VIAL IVP SCH (08:35)
[2019-10-19] MEDS: NYSTATIN 15 GM POWDER TP SCH ×2 (08:38→20:29)
[2019-10-19] MEDS: ENOXAPARIN SODIUM 60 MG/0.6 ML SQ SCH (08:38)
[2019-10-19] MEDS ORDERED: SODIUM CHLORIDE 0.9% 250 ML IV ONE (10:53)
[2019-10-19] MEDS: MEROPENEM 500 MG VIAL IV SCH (12:08)
[2019-10-19] MEDS: VANCOMYCIN 1GM+NS 250ML 250 ML IV SCH ×2 (12:08→12:25)
[2019-10-19] MEDS: AZITHROMYCIN 250 MG TABLET PO SCH (16:52)
[2019-10-19] MEDS: MIDODRINE HCL 5 MG TABLET NG SCH (16:52)
--- NOTE | 2019-10-19 19:15 | NUR ---
HAND OFF REPORT GIVEN TO YUDI WALLER
[2019-10-19] MEDS: INSULIN GLARGINE 100 UNITS/ML 10 ML VIAL SQ SCH (20:28)
--- NOTE | 2019-10-19 20:30 | NUR ---
MEDS SHIFT ASSESSMENT DONE, PLEASE REFER TO CHART. PT IS NON-VERBAL AND ONLY RESPONDS TO PAINFUL STIMULI. DUE MEDS ADMINISTERED. KEPT COMFORTABLE WITH HOB ELEVATED. MAINTAINED ON CPAP AT 90% O2. WILL MONITOR CLOSELY. Addendum: 10/19/19 at 2213 by YUDI RAMON RN RN Amended: Links added.
--- NOTE | 2019-10-19 22:15 | NUR ---
ROUNDS NO CHANGE IN PT'S CONDITION. KEPT COMFORTABLE AND DRY. WILL CONTINUE TO MONITOR.
[2019-10-20] MEDS: MIDODRINE HCL 5 MG TABLET NG SCH ×3 (00:14→16:55)
[2019-10-20] MEDS: MEROPENEM 500 MG VIAL IV SCH ×2 (00:14→12:00)
--- NOTE | 2019-10-20 00:15 | NUR ---
MEDS PT'S V/S AND BLOOD SUGAR MONITORED BY PCP, STABLE. RE-POSITIONED PT IN BED. NO CHANGE NOTED ON PT'S CONDITION. DUE MEDS ADMINISTERED. AWAITING TO GIVE REPORT TO ANOTHER RN TO TAKE OVER CARE SOON CHARGE NURSE SAYS SO.
--- NOTE | 2019-10-20 01:51 | NUR ---
RECEIVED REPORT FROM YUDI RN PT VSS AT THIS TIME, PT RESTING QUIETLY, NO CHANGES.M WILL CONT TO MONITOR
[2019-10-20 03:40] VITALS: BP 137/65
[2019-10-20 04:20] LABS: BASOPHILS % (AUTO) 0.4 % (0.0-5.0); EOSINOPHILS % (AUTO) 0.4 % (0.0-8.0); HEMATOCRIT 35.8 % (42-54); LYMPHOCYTES % (AUTO) 1.9 % (21.0-51.0); MEAN CORPUSCULAR HEMOGLOBIN 30.6 pg (27.0-33.0); MEAN CORPUSCULAR HGB CONC 29.3 g/dL (32.0-36.0); MEAN CORPUSCULAR VOLUME 104.4 fL (79-99); PLATELET COUNT (AUTO) 155 K/uL (130-400); RED BLOOD CELL COUNT(AUTO) 3.43 MIL/uL (4.50-6.20); RED CELL DISTRIBUTION WIDTH 15.2 % (11.0-15.5); WHITE BLOOD COUNT (AUTO) 14.1 K/uL (4.8-10.8)
[2019-10-20 04:54] LABS: ALBUMIN 1.3 g/dL (3.5-5.0); BILIRUBIN,TOTAL 0.7 mg/dL (0.2-1.0); CREATININE 1.3 mg/dL (0.5-1.5); MAGNESIUM 2.6 mg/dL (1.80-2.40); PHOSPHORUS 3.3 mg/dL (2.5-4.9); POTASSIUM 4.4 mmol/L (3.5-5.1); TOTAL PROTEIN, SERUM 5.8 g/dL (6.0-8.3)
[2019-10-20 05:04] LABS: CRP QUANTITATIVE 295.4 mg/L (0.00-9.0)
[2019-10-20] MEDS: INSULIN LISPRO 100 UNIT/ML 3ML SQ SCH ×4 (07:01→18:00)
[2019-10-20] MEDS ORDERED: VANCOMYCIN 1GM+NS 250ML 250 ML IV PRN (08:30)
[2019-10-20] MEDS: METOPROLOL TARTRATE 25 MG TAB PO SCH ×2 (09:00→21:17)
[2019-10-20] MEDS: FAMOTIDINE/PF 20 MG/2 ML VIAL IV SCH ×2 (09:00→21:17)
[2019-10-20] MEDS: NYSTATIN 15 GM POWDER TP SCH ×2 (09:00→21:36)
[2019-10-20] MEDS: DEXAMETHASONE SOD PHOSPHATE 4 MG/ML 1ML VIAL IVP SCH (09:12)
[2019-10-20] MEDS: FLUCONAZOLE 200 MG/NS 100 ML 100 ML IV SCH (09:12)
[2019-10-20] MEDS: ENOXAPARIN SODIUM 60 MG/0.6 ML SQ SCH (09:14)
[2019-10-20 09:18] VITALS: BP 120/77
[2019-10-20] MEDS: INSULIN HUMULIN R 100 UNIT/ML 3ML SQ SCH ×2 (12:00→18:46)
[2019-10-20] MEDS: VANCOMYCIN 1GM+NS 250ML 250 ML IV SCH (12:00)
[2019-10-20 12:32] VITALS: BP 94/63
--- NOTE | 2019-10-20 13:45 | NUR ---
CANCEL ORDER Pt CONTINUES TO BE ON CPAP/BIPAP, NOT ABLE TO PARTICIPATE IN RE-EVALUATION. GLOVE SEWER COORDINATE WITH NURSE SELVIN. CANCEL ORDER. PLEASE REQUEST RE-EVALUATION WHEN CURRENT RESPIRATORY STATUS IMPROVES. Addendum: 10/20/19 at 1347 by RYANN GARCIA, SPT ST Amended: Links added.
[2019-10-20] MEDS: AZITHROMYCIN 250 MG TABLET PO SCH (14:34)
--- NOTE | 2019-10-20 15:48 | NUR ---
RD FOLLOW UP Pt tube feeding resumed at goal, per RN. Glucerna 1.5 @20mls/hr. Flushes at 100mls Q6hrs. Monitored labs: WBC 14.1, Na 154, BG 290, Alb 1.3. RD to continue to monitor.
[2019-10-20 16:00] VITALS: BP 129/71
[2019-10-20 20:30] VITALS: BP 122/66
[2019-10-20] MEDS: INSULIN GLARGINE 100 UNITS/ML 10 ML VIAL SQ SCH (21:19)
[2019-10-21] VITALS (8 sets, daily range): BP systolic 104–146; BP diastolic 59–81
[2019-10-21] MEDS: MEROPENEM 500 MG VIAL IV SCH ×4 (01:12→23:54)
[2019-10-21] MEDS: INSULIN HUMULIN R 100 UNIT/ML 3ML SQ SCH ×5 (01:27→23:54)
[2019-10-21] MEDS: INSULIN LISPRO 100 UNIT/ML 3ML SQ SCH ×5 (06:00→23:40)
--- NOTE | 2019-10-21 06:52 | NUR ---
pAGED Sapna WHO IS SUPPLIER QUALITY ENGINEER REGARDING BLOOD SUGAR OF 54. pENDING CALL BACK
[2019-10-21] MEDS ORDERED: DEXTROSE 50%-WATER 50 ML DISP.SYRIN IV ONE (07:07)
[2019-10-21] MEDS ORDERED: GLUCAGON 1MG KIT 1 MG ML IM PRN (07:15)
--- NOTE | 2019-10-21 07:23 | NUR ---
Gave report to Patience on coming RN. Informed her regarding bs of 54and that Dr Lovell is aware. Patient was place on hypoglycemia protocol and D50 was given.
[2019-10-21] MEDS: NYSTATIN 15 GM POWDER TP SCH ×2 (09:00→21:17)
[2019-10-21] MEDS: FLUCONAZOLE 200 MG/NS 100 ML 100 ML IV SCH (10:06)
[2019-10-21] MEDS: ENOXAPARIN SODIUM 60 MG/0.6 ML SQ SCH (10:07)
[2019-10-21] MEDS: DEXAMETHASONE SOD PHOSPHATE 4 MG/ML 1ML VIAL IVP SCH (10:08)
[2019-10-21] MEDS: METOPROLOL TARTRATE 25 MG TAB PO SCH ×2 (10:09→21:17)
[2019-10-21] MEDS: FAMOTIDINE/PF 20 MG/2 ML VIAL IV SCH (10:09)
[2019-10-21] MEDS: MIDODRINE HCL 5 MG TABLET NG SCH ×4 (10:31→23:54)
[2019-10-21] MEDS: VANCOMYCIN 1GM+NS 250ML 250 ML IV SCH (11:14)
[2019-10-21] MEDS: AZITHROMYCIN 250 MG TABLET PO SCH (13:54)
--- NOTE | 2019-10-21 19:14 | NUR ---
TUBE FEED NOW AT 30CC DR. MERCADO SAID THAT THE TUBE FEED SHOULD NOW GO AT 30ML/HR. TUBE FEED IS NOW GOING AT ORDERED RATE
[2019-10-21] MEDS: INSULIN GLARGINE 100 UNITS/ML 10 ML VIAL SQ SCH (21:00)
[2019-10-22 03:00] VITALS: BP 111/63
[2019-10-22 05:27] LABS: BASOPHILS % (AUTO) 0.2 % (0.0-5.0); EOSINOPHILS % (AUTO) 0.1 % (0.0-8.0); LYMPHOCYTES % (AUTO) 2.8 % (21.0-51.0); MEAN CORPUSCULAR HEMOGLOBIN 30.9 pg (27.0-33.0); MEAN CORPUSCULAR VOLUME 106.7 fL (79-99); MONOCYTES % (AUTO) 3.6 % (3.0-13.0); NEUTROPHILS % (AUTO) 92.1 % (40.0-77.0); PLATELET COUNT (AUTO) 163 K/uL (130-400); RED BLOOD CELL COUNT(AUTO) 3.75 MIL/uL (4.50-6.20); RED CELL DISTRIBUTION WIDTH 15.7 % (11.0-15.5); WHITE BLOOD COUNT (AUTO) 16.2 K/uL (4.8-10.8)
[2019-10-22 05:54] LABS: ALBUMIN 1.5 g/dL (3.5-5.0); BILIRUBIN,TOTAL 0.5 mg/dL (0.2-1.0); CREATININE 1.6 mg/dL (0.5-1.5); CRP QUANTITATIVE 92.5 mg/L (0.00-9.0); POTASSIUM 4.4 mmol/L (3.5-5.1)
[2019-10-22] MEDS: INSULIN HUMULIN R 100 UNIT/ML 3ML SQ SCH ×4 (06:00→23:02)
[2019-10-22] MEDS: INSULIN LISPRO 100 UNIT/ML 3ML SQ SCH ×4 (06:17→23:02)
[2019-10-22] MEDS: MIDODRINE HCL 5 MG TABLET NG SCH ×3 (08:00→23:02)
[2019-10-22 08:42] VITALS: BP 98/50
[2019-10-22] MEDS: DEXAMETHASONE SOD PHOSPHATE 4 MG/ML 1ML VIAL IVP SCH (09:54)
[2019-10-22] MEDS: FLUCONAZOLE 200 MG/NS 100 ML 100 ML IV SCH (09:54)
[2019-10-22] MEDS: ENOXAPARIN SODIUM 60 MG/0.6 ML SQ SCH (09:54)
[2019-10-22] MEDS: METOPROLOL TARTRATE 25 MG TAB PO SCH ×2 (10:42→20:45)
[2019-10-22] MEDS: NYSTATIN 15 GM POWDER TP SCH ×2 (10:42→20:45)
[2019-10-22] MEDS: MEROPENEM 500 MG VIAL IV SCH ×2 (10:55→23:01)
[2019-10-22] MEDS: DEXTROSE 5%-WATER 1,000 ML IV SCH ×2 (11:15→18:29)
[2019-10-22 12:01] VITALS: BP 124/54
[2019-10-22] MEDS: AZITHROMYCIN 250 MG TABLET PO SCH (13:19)
[2019-10-22] MEDS: VANCOMYCIN 1GM+NS 250ML 250 ML IV SCH (13:19)
[2019-10-22 14:46] LABS: ABG BASE EXCESS -1.7 mmol/L (-2.0-3.0); ABG OXYGEN SATURATION 95.9 % (95.0-99.0); ABG PCO2 123 mmHg (35-48)
[2019-10-22 15:42] VITALS: BP 99/54
[2019-10-22 16:41] LABS: ABG BASE EXCESS -0.8 mmol/L (-2.0-3.0); ABG HCO3 33.6 mmol/L (21.0-28.0); ABG OXYGEN SATURATION 95.2 % (95.0-99.0); ABG PCO2 121 mmHg (35-48)
[2019-10-22] MEDS: LACTATED RINGERS 1000ML IV SCH (16:41)
--- NOTE | 2019-10-22 17:51 | NUR ---
Per Dr. Mccullough, -Please hold all Tube feeds at this time -D5w at 75ml/hr -Patient's family would like to continue Code Status: DNI with only ONE round of CPR. MD informed family of risks with prolonged use of bipap and family verbalized understanding.
[2019-10-22 18:11] LABS: POTASSIUM 4.7 mmol/L (3.5-5.1)
[2019-10-22 20:39] VITALS: BP 104/58
[2019-10-22] MEDS: INSULIN GLARGINE 100 UNITS/ML 10 ML VIAL SQ SCH (20:45)
[2019-10-22 22:00] LABS: POTASSIUM 4.4 mmol/L (3.5-5.1)
[2019-10-22 23:59] VITALS: BP 101/56
[2019-10-23] VITALS (9 sets, daily range): BP systolic 87–139; BP diastolic 55–77
[2019-10-23] MEDS: INSULIN HUMULIN R 100 UNIT/ML 3ML SQ SCH ×3 (03:41→17:16)
[2019-10-23] MEDS: DEXTROSE 5%-WATER 1,000 ML IV SCH ×3 (03:41→20:00)
[2019-10-23] MEDS: INSULIN LISPRO 100 UNIT/ML 3ML SQ SCH ×2 (03:41→12:00)
[2019-10-23 05:32] LABS: BASOPHILS % (AUTO) 0.2 % (0.0-5.0); HEMATOCRIT 36.9 % (42-54); LYMPHOCYTES % (AUTO) 3.3 % (21.0-51.0); MEAN CORPUSCULAR HEMOGLOBIN 31.4 pg (27.0-33.0); MEAN CORPUSCULAR HGB CONC 28.7 g/dL (32.0-36.0); MEAN CORPUSCULAR VOLUME 109.2 fL (79-99); MONOCYTES % (AUTO) 3.1 % (3.0-13.0); NEUTROPHILS % (AUTO) 92.8 % (40.0-77.0); PLATELET COUNT (AUTO) 128 K/uL (130-400); RED BLOOD CELL COUNT(AUTO) 3.38 MIL/uL (4.50-6.20); WHITE BLOOD COUNT (AUTO) 13.2 K/uL (4.8-10.8)
[2019-10-23 05:52] LABS: ALBUMIN 1.4 g/dL (3.5-5.0); BILIRUBIN,TOTAL 0.4 mg/dL (0.2-1.0); CREATININE 1.8 mg/dL (0.5-1.5); CRP QUANTITATIVE 48.8 mg/L (0.00-9.0); TOTAL PROTEIN, SERUM 5.5 g/dL (6.0-8.3)
[2019-10-23] MEDS: NYSTATIN 15 GM POWDER TP SCH ×2 (07:45→22:06)
[2019-10-23] MEDS: MIDODRINE HCL 5 MG TABLET NG SCH ×2 (09:25→14:11)
[2019-10-23] MEDS: METOPROLOL TARTRATE 25 MG TAB PO SCH ×2 (09:25→21:00)
[2019-10-23] MEDS: DEXAMETHASONE SOD PHOSPHATE 4 MG/ML 1ML VIAL IVP SCH (09:25)
[2019-10-23] MEDS: FLUCONAZOLE 200 MG/NS 100 ML 100 ML IV SCH (09:25)
[2019-10-23] MEDS: ENOXAPARIN SODIUM 60 MG/0.6 ML SQ SCH (09:26)
[2019-10-23] MEDS: LACTATED RINGERS 1000ML IV SCH (10:17)
[2019-10-23] MEDS: MEROPENEM 500 MG VIAL IV SCH (11:29)
[2019-10-23] MEDS: VANCOMYCIN 1GM+NS 250ML 250 ML IV SCH (11:30)
[2019-10-23] MEDS: AZITHROMYCIN 250 MG TABLET PO SCH (14:11)
[2019-10-23 15:43] LABS: BASOPHILS % (AUTO) 0.1 % (0.0-5.0); HEMATOCRIT 36.1 % (42-54); LYMPHOCYTES % (AUTO) 2.1 % (21.0-51.0); MEAN CORPUSCULAR HEMOGLOBIN 30.8 pg (27.0-33.0); MEAN CORPUSCULAR HGB CONC 28.3 g/dL (32.0-36.0); MEAN CORPUSCULAR VOLUME 109.1 fL (79-99); MONOCYTES % (AUTO) 1.9 % (3.0-13.0); NEUTROPHILS % (AUTO) 95.3 % (40.0-77.0); PLATELET COUNT (AUTO) 123 K/uL (130-400); RED BLOOD CELL COUNT(AUTO) 3.31 MIL/uL (4.50-6.20); WHITE BLOOD COUNT (AUTO) 13.6 K/uL (4.8-10.8)
[2019-10-23 16:58] LABS: HEMATOCRIT 35.8 % (42-54)
[2019-10-23] MEDS ORDERED: TRANEXAMIC ACID 1000MG/10ML IV ONE (17:45)
[2019-10-23] MEDS ORDERED: TRANEXAMIC ACID 1,000 MG in SODIUM CHLORIDE 0.9% 50 ML IV SCH (18:02)
--- NOTE | 2019-10-23 18:40 | NUR ---
Pt found actively bleeding from rectum on shift. Drs. Sevilla and Jamel made aware. STAT H&H ordered with T/S. Patient given 1gm of Tranexamic acid on shift. H&H will now ordered q4 for close monitoring. VSS with no complaints of pain or discomfort at this time. Tube feeds are still being held. Primary team ordered Cryoprecipitate, pending administration after thawed by blood bank. Oncoming RN made aware.
[2019-10-23 18:55] LABS: INR 0.99 (0.85-1.15); PARTIAL THROMBOPLASTIN TIME 32.7 SEC (26.3-35.5); PROTHROMBIN TIME 10.7 SEC (9.6-11.6)
[2019-10-23] MEDS: INSULIN GLARGINE 100 UNITS/ML 10 ML VIAL SQ SCH (22:04)
--- NOTE | 2019-10-23 22:14 | NUR ---
ROUNDS PT STABLE, RESPONDS WITH EYES AND HEAD KNOD. PT CONFIRMS PAIN. MD PAGED FOR PAIN MANAGEMENT. CRYOPRECIPITATE INFUSING.
--- NOTE | 2019-10-23 22:42 | NUR ---
[facility] PAGED FOR PAIN MANAGMENT APPROX 230. NO CALL BACK YET.
[2019-10-23] MEDS ORDERED: ALBUMIN (HUMAN) 25% 100 ML IV ONE (23:00)
[2019-10-24] VITALS (7 sets, daily range): BP systolic 82–128; BP diastolic 50–70
[2019-10-24] MEDS ORDERED: ALBUMIN (HUMAN) 25% 100 ML IV ONE (00:10)
[2019-10-24] MEDS ORDERED: ACETAMINOPHEN ELIXIR 650 MG/20.3 ML UDCUP NG PRN (00:30)
[2019-10-24 00:57] LABS: HEMATOCRIT 29.7 % (42-54)
[2019-10-24 05:35] LABS: BASOPHILS % (AUTO) 0.1 % (0.0-5.0); HEMATOCRIT 27.2 % (42-54); LYMPHOCYTES % (AUTO) 3.7 % (21.0-51.0); MEAN CORPUSCULAR HEMOGLOBIN 31.3 pg (27.0-33.0); MEAN CORPUSCULAR HGB CONC 29.4 g/dL (32.0-36.0); MEAN CORPUSCULAR VOLUME 106.3 fL (79-99); MONOCYTES % (AUTO) 1.9 % (3.0-13.0); NEUTROPHILS % (AUTO) 93.8 % (40.0-77.0); PLATELET COUNT (AUTO) 130 K/uL (130-400); RED BLOOD CELL COUNT(AUTO) 2.56 MIL/uL (4.50-6.20); RED CELL DISTRIBUTION WIDTH 14.7 % (11.0-15.5); WHITE BLOOD COUNT (AUTO) 14.8 K/uL (4.8-10.8)
[2019-10-24 06:19] LABS: BILIRUBIN,TOTAL 0.6 mg/dL (0.2-1.0); CREATININE 2.2 mg/dL (0.5-1.5); CRP QUANTITATIVE 29.1 mg/L (0.00-9.0); POTASSIUM 4.1 mmol/L (3.5-5.1); TOTAL PROTEIN, SERUM 5.2 g/dL (6.0-8.3); VANCOMYCIN LEVEL 29.6 mcg/mL (18.0-26.0)
[2019-10-24] MEDS: INSULIN HUMULIN R 100 UNIT/ML 3ML SQ SCH ×7 (06:33→21:00)
[2019-10-24] MEDS: DEXTROSE 5%-WATER 1,000 ML IV SCH ×3 (06:34→22:07)
[2019-10-24] MEDS: MIDODRINE HCL 5 MG TABLET NG SCH ×3 (08:00→17:11)
[2019-10-24] MEDS: METOPROLOL TARTRATE 25 MG TAB PO SCH ×2 (09:00→22:07)
[2019-10-24] MEDS: DEXAMETHASONE SOD PHOSPHATE 4 MG/ML 1ML VIAL IVP SCH (10:05)
[2019-10-24] MEDS: FLUCONAZOLE 200 MG/NS 100 ML 100 ML IV SCH (10:05)
[2019-10-24] MEDS: NYSTATIN 15 GM POWDER TP SCH ×2 (10:06→22:08)
[2019-10-24] MEDS: AZITHROMYCIN 250 MG TABLET PO SCH (13:41)
[2019-10-24] MEDS: MEROPENEM 500 MG VIAL IV SCH ×2 (13:41)
[2019-10-24] MEDS: VANCOMYCIN 1GM+NS 250ML 250 ML IV SCH (13:41)
--- NOTE | 2019-10-24 18:54 | NUR ---
Patient given 1 unit of PRBCs on unit for Hemoglobin of 8. Patient tolerated well. Recheck is now 9.3. Will order recheck for 4 hr check. Patient is not actively bleeding from rectum at this time.
[2019-10-25] MEDS: MIDODRINE HCL 5 MG TABLET NG SCH ×4 (01:06→23:26)
[2019-10-25] MEDS: MEROPENEM 500 MG VIAL IV SCH ×3 (01:06→23:26)
[2019-10-25] MEDS: INSULIN GLARGINE 100 UNITS/ML 10 ML VIAL SQ SCH ×2 (01:09→20:47)
[2019-10-25] MEDS: INSULIN HUMULIN R 100 UNIT/ML 3ML SQ SCH ×9 (01:09→23:34)
[2019-10-25 04:30] VITALS: BP 132/59
[2019-10-25 05:54] LABS: BASOPHILS % (AUTO) 0.1 % (0.0-5.0); HEMATOCRIT 29.5 % (42-54); LYMPHOCYTES % (AUTO) 1.7 % (21.0-51.0); MEAN CORPUSCULAR HEMOGLOBIN 30.6 pg (27.0-33.0); MEAN CORPUSCULAR HGB CONC 31.2 g/dL (32.0-36.0); MONOCYTES % (AUTO) 1.7 % (3.0-13.0); NEUTROPHILS % (AUTO) 95.8 % (40.0-77.0); NUCLEATED RED BLOOD CELLS 0.1 % (0.0-0.19); PLATELET COUNT (AUTO) 169 K/uL (130-400); RED BLOOD CELL COUNT(AUTO) 3.01 MIL/uL (4.50-6.20); RED CELL DISTRIBUTION WIDTH 16.4 % (11.0-15.5); WHITE BLOOD COUNT (AUTO) 21.4 K/uL (4.8-10.8)
[2019-10-25] MEDS: DEXTROSE 50%-WATER 50 ML DISP.SYRIN IV PRN (06:10)
[2019-10-25 06:32] LABS: CREATININE 1.8 mg/dL (0.5-1.5); CRP QUANTITATIVE 19.8 mg/L (0.00-9.0); POTASSIUM 3.4 mmol/L (3.5-5.1)
[2019-10-25] MEDS: NYSTATIN 15 GM POWDER TP SCH ×2 (08:36→19:51)
[2019-10-25 09:18] VITALS: BP 139/61
[2019-10-25] MEDS: METOPROLOL TARTRATE 25 MG TAB PO SCH ×2 (10:34→19:51)
[2019-10-25] MEDS: FLUCONAZOLE 200 MG/NS 100 ML 100 ML IV SCH (10:34)
[2019-10-25] MEDS: DEXAMETHASONE SOD PHOSPHATE 4 MG/ML 1ML VIAL IVP SCH (10:34)
[2019-10-25] MEDS: DEXTROSE 5%-WATER 1,000 ML IV SCH ×2 (11:00→20:44)
--- NOTE | 2019-10-25 11:23 | NUR ---
FOLLOW UP COMPLETED. Pt CONTINUES TO BE ON BIPAP. NO EVALUATION COMPLETED AT THIS TIME. Addendum: 10/25/19 at 1126 by RYANN GARCIA [facility] Amended: Links added.
[2019-10-25] MEDS: AZITHROMYCIN 250 MG TABLET PO SCH (11:49)
[2019-10-25 12:00] VITALS: BP 127/53
[2019-10-25] MEDS: VANCOMYCIN 1GM+NS 250ML 250 ML IV SCH (12:00)
[2019-10-25 16:00] VITALS: BP 136/55
[2019-10-25 20:10] VITALS: BP 135/55
[2019-10-25 23:35] VITALS: BP 134/50
[2019-10-26 04:22] VITALS: BP 108/55
[2019-10-26 05:07] LABS: BASOPHILS % (AUTO) 0.2 % (0.0-5.0); HEMATOCRIT 29.8 % (42-54); LYMPHOCYTES % (AUTO) 1.4 % (21.0-51.0); MEAN CORPUSCULAR HEMOGLOBIN 30.8 pg (27.0-33.0); MEAN CORPUSCULAR HGB CONC 31.5 g/dL (32.0-36.0); MEAN CORPUSCULAR VOLUME 97.7 fL (79-99); MONOCYTES % (AUTO) 1.9 % (3.0-13.0); NEUTROPHILS % (AUTO) 95.3 % (40.0-77.0); PLATELET COUNT (AUTO) 217 K/uL (130-400); RED BLOOD CELL COUNT(AUTO) 3.05 MIL/uL (4.50-6.20); RED CELL DISTRIBUTION WIDTH 15.4 % (11.0-15.5); WHITE BLOOD COUNT (AUTO) 25.1 K/uL (4.8-10.8)
[2019-10-26] MEDS: DEXTROSE 5%-WATER 1,000 ML IV SCH ×2 (05:13→20:32)
[2019-10-26 05:36] LABS: CREATININE 1.5 mg/dL (0.5-1.5); POTASSIUM 3.8 mmol/L (3.5-5.1); VANCOMYCIN LEVEL 21.6 mcg/mL (18.0-26.0)
[2019-10-26] MEDS: INSULIN HUMULIN R 100 UNIT/ML 3ML SQ SCH ×7 (05:54→20:32)
[2019-10-26] MEDS: NYSTATIN 15 GM POWDER TP SCH ×2 (07:44→21:02)
[2019-10-26] MEDS: METOPROLOL TARTRATE 25 MG TAB PO SCH (07:44)
[2019-10-26 08:00] VITALS: BP 121/48
[2019-10-26] MEDS ORDERED: COMPOUND IV REFRIGERATED 1 EACH IVSOLN MISC PRN (08:15)
[2019-10-26] MEDS: FLUCONAZOLE 200 MG/NS 100 ML 100 ML IV SCH (09:50)
[2019-10-26] MEDS: DEXAMETHASONE SOD PHOSPHATE 4 MG/ML 1ML VIAL IVP SCH (09:50)
[2019-10-26] MEDS: MIDODRINE HCL 5 MG TABLET NG SCH ×2 (09:50→17:00)
[2019-10-26 12:00] VITALS: BP 117/62
[2019-10-26] MEDS: ZOSYN 3.375GM+NS 50ML 50 ML IV SCH ×2 (12:38→20:49)
[2019-10-26 17:55] VITALS: BP 118/49
[2019-10-26 19:55] VITALS: BP 126/58
[2019-10-26] MEDS: INSULIN GLARGINE 100 UNITS/ML 10 ML VIAL SQ SCH (21:00)
--- NOTE | 2019-10-26 21:15 | NUR ---
Patient in bed resting comfortably, tolerating BiPap well SPO2@ 96%. No s/s of pain or discomfort at this time, IV fluids running without difficulty in R AC. IV ATB cont. T=97.8 pt. afebrile. BS + x4, ramires draining keyon urine. Call device with reach, pt. checked frequently. Will cont. to monitor.
--- NOTE | 2019-10-26 21:45 | NUR ---
FAMILY UPDATE This nurse made multiple attempts x4 to call family back to give update on patient@ [phone]. There was no answer and the phone states no voicemail is setup. House Charge Nurse made aware, He attempted to call above phone number x2. Will await return call.
[2019-10-26 23:20] VITALS: BP 134/56
[2019-10-27] MEDS: MIDODRINE HCL 5 MG TABLET NG SCH ×3 (01:11→17:53)
[2019-10-27] MEDS: ZOSYN 3.375GM+NS 50ML 50 ML IV SCH ×3 (04:26→21:01)
[2019-10-27 04:49] VITALS: BP 137/62
[2019-10-27 05:29] LABS: BASOPHILS % (AUTO) 0.2 % (0.0-5.0); HEMATOCRIT 29.9 % (42-54); MEAN CORPUSCULAR HEMOGLOBIN 30.5 pg (27.0-33.0); MEAN CORPUSCULAR HGB CONC 32.1 g/dL (32.0-36.0); MEAN CORPUSCULAR VOLUME 94.9 fL (79-99); PLATELET COUNT (AUTO) 210 K/uL (130-400); RED BLOOD CELL COUNT(AUTO) 3.15 MIL/uL (4.50-6.20); RED CELL DISTRIBUTION WIDTH 14.6 % (11.0-15.5); WHITE BLOOD COUNT (AUTO) 26.1 K/uL (4.8-10.8)
[2019-10-27 05:46] LABS: CREATININE 1.3 mg/dL (0.5-1.5); CRP QUANTITATIVE 8.4 mg/L (0.00-9.0); POTASSIUM 3.5 mmol/L (3.5-5.1)
[2019-10-27] MEDS: INSULIN HUMULIN R 100 UNIT/ML 3ML SQ SCH ×9 (06:00→23:44)
[2019-10-27 07:45] VITALS: BP 114/62
[2019-10-27] MEDS: POTASSIUM CHLORIDE 20 MEQ in DEXTROSE 5%-WATER 1,000 ML IV SCH (08:34)
[2019-10-27] MEDS: FLUCONAZOLE 200 MG/NS 100 ML 100 ML IV SCH (08:34)
[2019-10-27] MEDS: DEXAMETHASONE SOD PHOSPHATE 4 MG/ML 1ML VIAL IVP SCH (08:35)
[2019-10-27] MEDS: NYSTATIN 15 GM POWDER TP SCH ×2 (08:35→21:01)
[2019-10-27] MEDS ORDERED: VANCOMYCIN 750MG + NS 250 ML IV SCH ×2 (09:00)
[2019-10-27 11:47] VITALS: BP 132/58
[2019-10-27] MEDS: DEXTROSE 50%-WATER 50 ML DISP.SYRIN IV PRN (13:02)
[2019-10-27 15:33] VITALS: BP 128/60
--- NOTE | 2019-10-27 17:55 | NUR ---
Tube feeds restarted at 1500 @10ml/hr. Patient tolerating well. Will continue to monitor for any changes.
[2019-10-27 19:26] VITALS: BP 139/65
--- NOTE | 2019-10-27 22:00 | NUR ---
Patient in bed resting comfortably, tolerating CPap well SPO2@ 96%. No s/s of pain or discomfort at this time, IV fluids running without difficulty in R AC. IV ATB cont, T=97.1 pt. afebrile. Tube feed running at 10ml/hr per Right nare NG tube, pt. tolerating well. NG patent and flushes well. T=97.1 pt. afebrile. BS + x4, ramires draining keyon urine. Spoke with family and gave update on pt. health status. Call device with reach, pt. checked frequently. Will cont. to monitor.
[2019-10-27 23:03] VITALS: BP 138/62
[2019-10-28] VITALS (7 sets, daily range): BP systolic 124–169; BP diastolic 44–82
[2019-10-28] MEDS: POTASSIUM CHLORIDE 20 MEQ in DEXTROSE 5%-WATER 1,000 ML IV SCH ×2 (00:58→14:00)
[2019-10-28] MEDS ORDERED: HYDRALAZINE HCL 20 MG/ML VIAL IV SCH (05:00)
--- NOTE | 2019-10-28 05:00 | NUR ---
ELEVATED BP Patient with elevated BP of 150/82 . Solar Energy Engineer VIJAYA Shaw notified of findings. New order given Hydralazine 10mg IVP x 1 dose give now. Order read back to VIJAYA Shaw
[2019-10-28] MEDS: ZOSYN 3.375GM+NS 50ML 50 ML IV SCH ×3 (05:06→22:50)
[2019-10-28] MEDS: INSULIN HUMULIN R 100 UNIT/ML 3ML SQ SCH ×7 (06:44→21:00)
--- NOTE | 2019-10-28 06:48 | NUR ---
BP Blood Pressure currently 127/54, no distress noted. Call device within reach will cont. to monitor.
[2019-10-28] MEDS: MIDODRINE HCL 5 MG TABLET NG SCH ×3 (10:35→17:17)
[2019-10-28] MEDS: DEXAMETHASONE SOD PHOSPHATE 4 MG/ML 1ML VIAL IVP SCH (10:36)
[2019-10-28] MEDS: FLUCONAZOLE 200 MG/NS 100 ML 100 ML IV SCH (10:36)
[2019-10-28] MEDS: NYSTATIN 15 GM POWDER TP SCH ×2 (10:36→22:50)
--- NOTE | 2019-10-28 13:12 | NUR ---
DC PLAN WENT TO PATIENT ROOM. PATIENT DID NOT LOOK STABLE. UNDER A ROJAS WITH CPAP AT 50. SAT 89% CM WILL CONTINUE TO FOLLOW ONCE MORE STABLE WILL LOOK AT CDA. Addendum: 10/28/19 at 1313 by TRESA PADRON RN CM Amended: Links added.
[2019-10-29] MEDS ORDERED: INSULIN HUMULIN R 100 UNIT/ML 3ML SQ SCH
[2019-10-29] MEDS: POTASSIUM CHLORIDE 20 MEQ in DEXTROSE 5%-WATER 1,000 ML IV SCH ×2 (04:06→16:30)
[2019-10-29 04:15] VITALS: BP 143/67
[2019-10-29] MEDS: ZOSYN 3.375GM+NS 50ML 50 ML IV SCH ×3 (05:04→21:00)
[2019-10-29 07:00] VITALS: BP 155/58
[2019-10-29] MEDS: INSULIN HUMULIN R 100 UNIT/ML 3ML SQ SCH ×6 (07:21→21:00)
[2019-10-29] MEDS: MIDODRINE HCL 5 MG TABLET NG SCH ×3 (08:00→16:00)
[2019-10-29] MEDS: VANCOMYCIN 500MG+NS 100ML 100 ML IV SCH (09:00)
[2019-10-29] MEDS: NYSTATIN 15 GM POWDER TP SCH ×2 (09:01→21:00)
[2019-10-29] MEDS: DEXAMETHASONE SOD PHOSPHATE 4 MG/ML 1ML VIAL IVP SCH (09:08)
[2019-10-29] MEDS: FLUCONAZOLE 200 MG/NS 100 ML 100 ML IV SCH (09:08)
[2019-10-29 11:00] VITALS: BP 154/67
[2019-10-29 15:00] VITALS: BP 139/57
[2019-10-29 20:05] VITALS: BP 138/69
[2019-10-29 23:30] VITALS: BP 144/61
[2019-10-30 04:30] VITALS: BP 150/64
[2019-10-30] MEDS: ZOSYN 3.375GM+NS 50ML 50 ML IV SCH ×3 (05:10→20:18)
[2019-10-30] MEDS: INSULIN HUMULIN R 100 UNIT/ML 3ML SQ SCH ×8 (06:00→20:10)
[2019-10-30] MEDS: POTASSIUM CHLORIDE 20 MEQ in DEXTROSE 5%-WATER 1,000 ML IV SCH (06:14)
[2019-10-30 07:00] VITALS: BP 160/65
[2019-10-30] MEDS: MIDODRINE HCL 5 MG TABLET NG SCH ×2 (07:38)
[2019-10-30] MEDS: NYSTATIN 15 GM POWDER TP SCH ×2 (07:44→12:01)
[2019-10-30 07:56] LABS: BASOPHILS % (AUTO) 0.2 % (0.0-5.0); EOSINOPHILS % (AUTO) 0.1 % (0.0-8.0); HEMATOCRIT 24.6 % (42-54); LYMPHOCYTES % (AUTO) 1.3 % (21.0-51.0); MEAN CORPUSCULAR HEMOGLOBIN 31.5 pg (27.0-33.0); MEAN CORPUSCULAR HGB CONC 32.5 g/dL (32.0-36.0); MEAN CORPUSCULAR VOLUME 96.9 fL (79-99); MONOCYTES % (AUTO) 1.2 % (3.0-13.0); NEUTROPHILS % (AUTO) 96.4 % (40.0-77.0); PLATELET COUNT (AUTO) 161 K/uL (130-400); RED BLOOD CELL COUNT(AUTO) 2.54 MIL/uL (4.50-6.20); RED CELL DISTRIBUTION WIDTH 14.6 % (11.0-15.5); WHITE BLOOD COUNT (AUTO) 19.9 K/uL (4.8-10.8)
[2019-10-30 08:11] LABS: INR 0.89 (0.85-1.15); PARTIAL THROMBOPLASTIN TIME 26.4 SEC (26.3-35.5); PROTHROMBIN TIME 9.7 SEC (9.6-11.6)
[2019-10-30 08:16] LABS: ALBUMIN 1.6 g/dL (3.5-5.0); BILIRUBIN,TOTAL 0.6 mg/dL (0.2-1.0); CRP QUANTITATIVE 8.7 mg/L (0.00-9.0); POTASSIUM 3.6 mmol/L (3.5-5.1); TOTAL PROTEIN, SERUM 4.7 g/dL (6.0-8.3)
[2019-10-30 08:34] LABS: B-TYPE NATRIURETIC PEPTIDE 111 pg/mL (0-100)
[2019-10-30] MEDS: FLUCONAZOLE 200 MG/NS 100 ML 100 ML IV SCH (09:04)
[2019-10-30] MEDS: DEXAMETHASONE SOD PHOSPHATE 4 MG/ML 1ML VIAL IVP SCH (10:14)
[2019-10-30] MEDS: VANCOMYCIN 500MG+NS 100ML 100 ML IV SCH (10:14)
[2019-10-30 11:00] VITALS: BP 159/66
[2019-10-30 12:05] LABS: INR 0.9 (0.85-1.15); PROTHROMBIN TIME 9.8 SEC (9.6-11.6)
[2019-10-30 15:00] VITALS: BP 165/71
--- NOTE | 2019-10-30 15:00 | NUR ---
CALLED PT.'S DAUGHTER, MONISHA FREY, AND EXPLAINED PICC LINE ORDERED FOR INSERTION. DAUGHTER STATES HAS TO SPEAK WITH HER MOTHER, PT.'S SPOUSE AND WILL CALL BACK WITH AN ANSWER.
--- NOTE | 2019-10-30 16:40 | NUR ---
RECEIVED CALL FROM PT.'S DAUGHTER, MONISHA FREY, WHO ASKED WHAT DOCTOR IS ORDERING THE PICC LINE (SPELLED DR.'S NAME REQUESTED BY DAUGHTER); EXPLAINED RATIONALE FOR PICC LINE ONCE AGAIN. MONISHA TK STATES THEY (FAMILY) DO NOT WANT A PICC LINE INSERTED, AND STATES, "MAKE SURE THEY DON'T PUT IT IN."
--- NOTE | 2019-10-30 18:50 | NUR ---
Discussion of PICC placement taken place today with family. SRIDHAR Odom assisted with call and stated risks, benefits, and necessity of line. Family refused placement at this time. concrete block plant supervisor made aware. Will follow up with team about further treatment plan.
[2019-10-30 20:00] VITALS: BP 152/89
--- NOTE | 2019-10-30 22:57 | NUR ---
CALLED TO ASSESS PATIENT FOR PICC PLACEMENT ORDERED BY VIJAYA CONKLIN FOR ANTIBIOTIC THERAPY. PER NIGHT NURSE'S REPORT, FAMILY DECLINED PICC PLACEMENT. WILL DEFER BACK TO CONTROL SYSTEMS SPECIALIST FOR FURTHER RECOMMENDATIONS.
[2019-10-30 23:56] VITALS: BP 191/79
[2019-10-31 03:39] VITALS: BP 135/71
[2019-10-31] MEDS: ZOSYN 3.375GM+NS 50ML 50 ML IV SCH ×3 (05:16→22:17)
[2019-10-31] MEDS: INSULIN HUMULIN R 100 UNIT/ML 3ML SQ SCH ×7 (06:35→21:00)
[2019-10-31 07:00] VITALS: BP 138/63
--- NOTE | 2019-10-31 08:00 | NUR ---
ASSESSMENT ENCOUNTERED PT IN SEMI RINCON'S POSITION, RESPONSIVE ONLY TO PAINFUL STIMULI AND NONVERBAL, FLAT AFFECT, WITH BIPAP IN PLACE, DOES NOT APPEAR TO BE IN ANY DISTRESS, PT DOES HAVE GENERALIZED BODY EDEMA AND SLIGHTLY MOANS WITH REPOSITIONING AND IS UNABLE TO FOLLOW COMMANDS. CALL LIGHT WITHIN REACH, PT IN FULL VIEW OF RN STATION.
[2019-10-31] MEDS: VANCOMYCIN 500MG+NS 100ML 100 ML IV SCH ×2 (09:00→16:56)
[2019-10-31] MEDS: NYSTATIN 15 GM POWDER TP SCH ×2 (09:00→22:17)
[2019-10-31 11:00] VITALS: BP 154/72
[2019-10-31] MEDS: FLUCONAZOLE 200 MG/NS 100 ML 100 ML IV SCH (11:37)
[2019-10-31] MEDS: DEXAMETHASONE SOD PHOSPHATE 4 MG/ML 1ML VIAL IVP SCH (12:10)
[2019-10-31 15:00] VITALS: BP 171/80
[2019-10-31 19:41] VITALS: BP 146/65
[2019-10-31 23:54] VITALS: BP 117/80
[2019-11-01 03:32] VITALS: BP 130/71
[2019-11-01] MEDS: ZOSYN 3.375GM+NS 50ML 50 ML IV SCH ×3 (05:41→21:03)
[2019-11-01] MEDS: INSULIN HUMULIN R 100 UNIT/ML 3ML SQ SCH ×6 (07:03→21:04)
[2019-11-01 08:00] VITALS: BP 116/62
[2019-11-01] MEDS: NYSTATIN 15 GM POWDER TP SCH ×2 (08:08→21:04)
[2019-11-01] MEDS: DEXAMETHASONE SOD PHOSPHATE 4 MG/ML 1ML VIAL IVP SCH (08:42)
[2019-11-01] MEDS: FLUCONAZOLE 200 MG/NS 100 ML 100 ML IV SCH (08:42)
[2019-11-01 12:00] VITALS: BP 154/91
[2019-11-01 16:00] VITALS: BP 151/83
[2019-11-01] MEDS: VANCOMYCIN 500MG+NS 100ML 100 ML IV SCH (16:14)
[2019-11-01] MEDS: MORPHINE SULFATE 2 MG/ML 1ML SYG IVP PRN ×2 (17:59)
[2019-11-01 21:12] VITALS: BP 148/73
[2019-11-01 23:56] VITALS: BP 124/66
[2019-11-02 04:43] VITALS: BP 137/77
[2019-11-02] MEDS: INSULIN HUMULIN R 100 UNIT/ML 3ML SQ SCH ×7 (04:44→21:11)
[2019-11-02] MEDS: ZOSYN 3.375GM+NS 50ML 50 ML IV SCH ×3 (04:44→20:59)
[2019-11-02] MEDS: MORPHINE SULFATE 2 MG/ML 1ML SYG IVP PRN (05:06)
--- NOTE | 2019-11-02 06:29 | NUR ---
end of shift note turned patient every two hours as patient has a wound on his coccyx. patient had a large dark loose BM. 200ml of yellow urine out of ramires. cleaned patient. barrier cream applied to groin area. foam dressing changed to coccyx area. no signs or symptoms of distress as this nurse did give morphine at 0506 to help with generalized pain.
[2019-11-02 08:00] VITALS: BP 167/92
[2019-11-02] MEDS: NYSTATIN 15 GM POWDER TP SCH ×2 (09:17→21:12)
[2019-11-02] MEDS: DEXAMETHASONE SOD PHOSPHATE 4 MG/ML 1ML VIAL IVP SCH (09:17)
[2019-11-02] MEDS: FLUCONAZOLE 200 MG/NS 100 ML 100 ML IV SCH (09:17)
[2019-11-02 12:00] VITALS: BP 148/87
[2019-11-02] MEDS: VANCOMYCIN 500MG+NS 100ML 100 ML IV SCH (15:01)
[2019-11-02 16:00] VITALS: BP 156/78
--- NOTE | 2019-11-02 16:17 | NUR ---
RD FOLLOW UP Tube feeding advanced to 25mls/hr. Pt tolerating. Continues on CPAP with Nasal cannula. Monitored labs: WBC 19.9, BG 127, Na 147, CO2 36, BUN 39, Alb 1.6. Recommend continue advance tube feeding rate as tolerated to goal. RD to continue to monitor. Please notify as additional nutrition concerns arise. Thank you.
[2019-11-02 21:16] VITALS: BP 128/64
[2019-11-02 23:26] VITALS: BP 142/72
[2019-11-03 05:08] VITALS: BP 116/63
[2019-11-03] MEDS: INSULIN HUMULIN R 100 UNIT/ML 3ML SQ SCH ×7 (06:00→21:00)
[2019-11-03] MEDS: ZOSYN 3.375GM+NS 50ML 50 ML IV SCH ×3 (06:25→21:37)
[2019-11-03 06:50] LABS: BASOPHILS % (AUTO) 0.1 % (0.0-5.0); HEMATOCRIT 24.4 % (42-54); LYMPHOCYTES % (AUTO) 1.6 % (21.0-51.0); MEAN CORPUSCULAR HEMOGLOBIN 31.1 pg (27.0-33.0); MEAN CORPUSCULAR HGB CONC 29.9 g/dL (32.0-36.0); MEAN CORPUSCULAR VOLUME 103.8 fL (79-99); MONOCYTES % (AUTO) 2.2 % (3.0-13.0); NEUTROPHILS % (AUTO) 95.4 % (40.0-77.0); NUCLEATED RED BLOOD CELLS 0.2 % (0.0-0.19); PLATELET COUNT (AUTO) 163 K/uL (130-400); RED BLOOD CELL COUNT(AUTO) 2.35 MIL/uL (4.50-6.20); RED CELL DISTRIBUTION WIDTH 17.2 % (11.0-15.5); WHITE BLOOD COUNT (AUTO) 16.7 K/uL (4.8-10.8)
[2019-11-03 07:14] LABS: ALBUMIN 1.5 g/dL (3.5-5.0); BILIRUBIN,TOTAL 0.5 mg/dL (0.2-1.0); CREATININE 1.9 mg/dL (0.5-1.5); CRP QUANTITATIVE 35.3 mg/L (0.00-9.0); POTASSIUM 4.2 mmol/L (3.5-5.1); TOTAL PROTEIN, SERUM 4.8 g/dL (6.0-8.3)
[2019-11-03] MEDS: NYSTATIN 15 GM POWDER TP SCH ×2 (07:26→21:55)
[2019-11-03 08:30] VITALS: BP 120/68
[2019-11-03] MEDS: FLUCONAZOLE 200 MG/NS 100 ML 100 ML IV SCH (08:32)
[2019-11-03] MEDS: ENOXAPARIN SODIUM 60 MG/0.6 ML SQ SCH (08:32)
[2019-11-03] MEDS: VANCOMYCIN 500MG+NS 100ML 100 ML IV SCH (08:33)
[2019-11-03] MEDS: DEXTROSE 5%-WATER 1,000 ML IV SCH ×2 (09:45→21:30)
[2019-11-03] MEDS ORDERED: INSULIN HUMULIN R 100 UNIT/ML 3ML SQ SCH ×2 (12:00→18:00)
[2019-11-03 12:48] VITALS: BP 116/63
[2019-11-03] MEDS: LACTATED RINGERS 1000ML 1,000 ML IV SCH ×2 (14:45→16:29)
[2019-11-03] MEDS: MORPHINE SULFATE 2 MG/ML 1ML SYG IVP PRN (15:13)
[2019-11-03 16:18] VITALS: BP 110/59
--- NOTE | 2019-11-03 16:29 | NUR ---
Per Dr. Reed, Hold NG tube reinsertion at this time due to possible PEG tube placement. PICC Line consent signed by RN and Dr. Reed via telephone consent with daughter.
[2019-11-03 18:27] LABS: INR 1.02 (0.85-1.15)
--- NOTE | 2019-11-03 18:56 | NUR ---
GI Consult- Dr. Pradhan made aware of new consult but stated he will be unable to perform PEG placement at this time due to patient's current respiratory status. Dr. Reed called and voicemail left
[2019-11-03 20:17] VITALS: BP 129/65
[2019-11-03 23:37] VITALS: BP 116/55
[2019-11-04] MEDS: DEXTROSE 5%-LACTATED RINGERS 1,000 ML IV SCH ×2 (00:31→15:44)
[2019-11-04] MEDS: INSULIN HUMULIN R 100 UNIT/ML 3ML SQ SCH ×5 (00:35→12:00)
[2019-11-04 03:32] VITALS: BP 106/40
[2019-11-04] MEDS: ZOSYN 3.375GM+NS 50ML 50 ML IV SCH ×3 (04:57→20:38)
[2019-11-04 05:18] LABS: BASOPHILS % (AUTO) 0.1 % (0.0-5.0); EOSINOPHILS % (AUTO) 0.1 % (0.0-8.0); HEMATOCRIT 25.1 % (42-54); MEAN CORPUSCULAR HEMOGLOBIN 31.5 pg (27.0-33.0); MEAN CORPUSCULAR HGB CONC 29.1 g/dL (32.0-36.0); MEAN CORPUSCULAR VOLUME 108.2 fL (79-99); MONOCYTES % (AUTO) 2.4 % (3.0-13.0); NEUTROPHILS % (AUTO) 94.8 % (40.0-77.0); NUCLEATED RED BLOOD CELLS 0.2 % (0.0-0.19); PLATELET COUNT (AUTO) 163 K/uL (130-400); RED BLOOD CELL COUNT(AUTO) 2.32 MIL/uL (4.50-6.20); RED CELL DISTRIBUTION WIDTH 17.8 % (11.0-15.5); WHITE BLOOD COUNT (AUTO) 17.3 K/uL (4.8-10.8)
[2019-11-04 06:07] LABS: ALBUMIN 1.4 g/dL (3.5-5.0); BILIRUBIN,TOTAL 0.3 mg/dL (0.2-1.0); CREATININE 1.7 mg/dL (0.5-1.5); CRP QUANTITATIVE 45.9 mg/L (0.00-9.0); POTASSIUM 3.9 mmol/L (3.5-5.1); TOTAL PROTEIN, SERUM 4.6 g/dL (6.0-8.3)
--- NOTE | 2019-11-04 06:40 | NUR ---
Called Dr. Sevilla regarding lab values. While on phone RN discussed w/provider that NG tube was taken out yesterday due to occlusion and that per GI note PEG tube placement deferred due to respiratory requirement of CPAP. GI note does state possibility of PEG w/IR and anesthesia. Discussed w/Dr. Sevilla, states will touch base w/Dr. Santana regarding NG tube replacement vs PEG tube w/IR.
[2019-11-04 08:27] VITALS: BP 101/50
--- NOTE | 2019-11-04 08:45 | NUR ---
DR MERCADO AT BEDSIDE AND ORDERS TO HOLD 4 UNITS OF SCHEDULED INSULIN IF NOT ON IVF OR TUBE FEEDINGS IF BS <200.
[2019-11-04] MEDS: NYSTATIN 15 GM POWDER TP SCH (09:00)
[2019-11-04] MEDS: FLUCONAZOLE 200 MG/NS 100 ML 100 ML IV SCH (09:08)
[2019-11-04] MEDS: ENOXAPARIN SODIUM 60 MG/0.6 ML SQ SCH (09:08)
[2019-11-04 12:24] VITALS: BP 107/45
--- NOTE | 2019-11-04 13:00 | NUR ---
PICC LINE PLACED IN RIGHT FORE ARM AND OK TO USE. ORDERS IN FOR DIETARY C/S FOR TPN
[2019-11-04 16:36] VITALS: BP 105/39
[2019-11-04] MEDS ORDERED: DEXTROSE 5%-WATER 1,000 ML IV SCH (17:46)
[2019-11-04 19:55] VITALS: BP 102/37
[2019-11-04] MEDS ORDERED: EPOETIN ALFA 10,000 UNIT/ML VIAL SQ SCH (21:00)
[2019-11-04 23:23] VITALS: BP 100/45
[2019-11-05 03:23] VITALS: BP 102/48
--- NOTE | 2019-11-05 03:40 | NUR ---
One unit of PRBC completed as ordered. No s/s of transfusion reaction observed. Patient had two tarry stools, one large and one moderate, jelly like. Hospitalist Maryellen informed. AM care provided. Patient turned and repositioned per protocol. Following POC.
[2019-11-05] MEDS: ZOSYN 3.375GM+NS 50ML 50 ML IV SCH (05:13)
[2019-11-05] MEDS: INSULIN HUMULIN R 100 UNIT/ML 3ML SQ SCH ×2 (06:00)
[2019-11-05 06:16] LABS: BASOPHILS % (AUTO) 0.1 % (0.0-5.0); EOSINOPHILS % (AUTO) 0.2 % (0.0-8.0); HEMATOCRIT 31.1 % (42-54); MEAN CORPUSCULAR HEMOGLOBIN 30.2 pg (27.0-33.0); MEAN CORPUSCULAR HGB CONC 27.7 g/dL (32.0-36.0); MEAN CORPUSCULAR VOLUME 109.1 fL (79-99); MONOCYTES % (AUTO) 1.9 % (3.0-13.0); NEUTROPHILS % (AUTO) 91.4 % (40.0-77.0); NUCLEATED RED BLOOD CELLS 0.1 % (0.0-0.19); PLATELET COUNT (AUTO) 144 K/uL (130-400); RED BLOOD CELL COUNT(AUTO) 2.85 MIL/uL (4.50-6.20); RED CELL DISTRIBUTION WIDTH 18.3 % (11.0-15.5); WHITE BLOOD COUNT (AUTO) 14.7 K/uL (4.8-10.8)
[2019-11-05 06:40] LABS: ALBUMIN 1.3 g/dL (3.5-5.0); BILIRUBIN,TOTAL 0.2 mg/dL (0.2-1.0); CREATININE 2.3 mg/dL (0.5-1.5); CRP QUANTITATIVE 52.3 mg/L (0.00-9.0); POTASSIUM 4.3 mmol/L (3.5-5.1); TOTAL PROTEIN, SERUM 4.5 g/dL (6.0-8.3)
[2019-11-05 06:43] LABS: % IRON SATURATION 48.5 % (30-44)
--- NOTE | 2019-11-05 07:39 | NUR ---
0705: Patient potable monitor at bed side showed no pulse, during morning report. CPR started. and code called. 0713: Epi given. 0715: pause felt, but pt not still breathing. Initial dose of Amiodarone given, pt is breathing. 0720: pt started on Bipap machine. Patient is breathing pulse 110, difficult to get BP. Report completed with AM nurse. Dr. Reed and family informed of pt present status by AM nurse.
--- NOTE | 2019-11-05 07:55 | NUR ---
CHARGE NURSE ON THE TELEPHONE W/ JESUS DAUGHTER ABOUT CODE STATUS, PT IN ASYSTOLE AGAIN, NO PULSE DAUGHTER STATED DO NOT CODE AGAIN. EFFORTS DISCONTINUED , CHARGE NURSE TO DO VIDEO W/ FAMILY, AND DR MEIER NOTIFIED OF PATIENT .
[2019-11-05] MEDS ORDERED: PANTOPRAZOLE 40 MG/VIAL IVP SCH (09:00)
[2019-11-05] MEDS ORDERED: IRON SUCROSE COMPLEX 300 MG in SODIUM CHLORIDE 0.9% 50 ML IV SCH (09:00)
== END 2019-11-05 07:51 | disposition expired | DRG 177 ==
LOC: EDH 16:24 → EDHIP 16:25 → 2AH 09-18 11:50 → 2CH 10-11 08:09 → 2DH 10-16 12:26
PROVIDERS: ADMIT Hospitalist; ATTEND Hospitalist
PROC: XW033E5 Introduction of Remdesivir Anti-infective into Peripheral Vein, Percutaneous Approach, New Technology Group 5 (ICD-10-PCS; 2019-09-22)
PROC: 5A09457 Assistance with Respiratory Ventilation, 24-96 Consecutive Hours, Continuous Positive Airway Pressure (ICD-10-PCS; 2019-10-10)
PROC: 5A09357 Assistance with Respiratory Ventilation, Less than 24 Consecutive Hours, Continuous Positive Airway Pressure (ICD-10-PCS; 2019-10-17)
PROC: 5A09357 Assistance with Respiratory Ventilation, Less than 24 Consecutive Hours, Continuous Positive Airway Pressure (ICD-10-PCS; 2019-10-18)
PROC: XW13325 Transfusion of Convalescent Plasma (Nonautologous) into Peripheral Vein, Percutaneous Approach, New Technology Group 5 (ICD-10-PCS; principal; 2019-10-19)
PROC: 5A09557 Assistance with Respiratory Ventilation, Greater than 96 Consecutive Hours, Continuous Positive Airway Pressure (ICD-10-PCS; 2019-10-19)
PROC: 30233N1 Transfusion of Nonautologous Red Blood Cells into Peripheral Vein, Percutaneous Approach (ICD-10-PCS; 2019-10-24)
PROC: 02H633Z Insertion of Infusion Device into Right Atrium, Percutaneous Approach (ICD-10-PCS; 2019-10-30)
DX: U07.1 COVID-19 (principal); E11.10 Type 2 diabetes mellitus with ketoacidosis without coma; J12.89 Other viral pneumonia; E43 Unspecified severe protein-calorie malnutrition; A41.9 Sepsis, unspecified organism; R65.21 Severe sepsis with septic shock; J96.21 Acute and chronic respiratory failure with hypoxia; J96.22 Acute and chronic respiratory failure with hypercapnia; G93.40 Encephalopathy, unspecified; D62 Acute posthemorrhagic anemia; B37.0 Candidal stomatitis; E87.0 Hyperosmolality and hypernatremia; N39.0 Urinary tract infection, site not specified; Z16.12 Extended spectrum beta lactamase (ESBL) resistance; K92.2 Gastrointestinal hemorrhage, unspecified; Z16.24 Resistance to multiple antibiotics; I48.91 Unspecified atrial fibrillation; L98.429 Non-pressure chronic ulcer of back with unspecified severity; Z90.49 Acquired absence of other specified parts of digestive tract; I10 Essential (primary) hypertension; R13.12 Dysphagia, oropharyngeal phase; Z68.30 Body mass index [BMI] 30.0-30.9, adult; T38.0X5A Adverse effect of glucocorticoids and synthetic analogues, initial encounter; Y92.89 Other specified places as the place of occurrence of the external cause; E66.9 Obesity, unspecified; Z74.01 Bed confinement status; Z91.19 Patient's noncompliance with other medical treatment and regimen; E86.0 Dehydration; M54.2 Cervicalgia; B96.1 Klebsiella pneumoniae [K. pneumoniae] as the cause of diseases classified elsewhere; B95.2 Enterococcus as the cause of diseases classified elsewhere; N19 Unspecified kidney failure; E87.6 Hypokalemia; Z79.01 Long term (current) use of anticoagulants; Z79.4 Long term (current) use of insulin
CPT/HCPCS: 0099U; 36415; 36430; 36600; 71045; 71275; 80048; 80053; 80202; 81001; 82010; 82270; 82435; 82550; 82728; 82803; 82947; 82948; 83036; 83540; 83550; 83605; 83615; 83735; 83874; 83880; 84100; 84132; 84145; 84295; 84484; 85014; 85018; 85025; 85045; 85378; 85384; 85610; 85730; 86140; 86850; 86900; 86901; 86922; 86923; 86927; 87040; 87070; 87077; 87088; 87186; 87804; 92610; 92950; 93005; 93306; 93356; 94660; 94760; 97039; 99291; A4606; A6234; C1894; C9113; G0378; J0360; J0456; J0696; J0885; J1100; J1450; J1650; J1756; J1815; J2185; J2543; J2704; J2920; J2930; J3370; J3480; J3486; J3490; J7030; J7040; J7042; J7050; J7070; J7120; J8540; P9012; P9016; P9046; Q9967; U0003